=== PATIENT | female | born 1950 | race Caucasian/White ===

== ENCOUNTER 2018-07-17 17:41 | Inpatient (IN) | payer MEDICARE, OTHER ==
[~2018-07-17] VITALS: Ht 162.6 cm; Wt 84.4 kg
[2018-07-17] VITALS (7 sets, daily range): BP systolic 109–150; BP diastolic 55–85
[~2018-07-17 17:41] MED LIST: LACTULOSE 10 G/15 ML UDC (PYXIS) GT ONE
[2018-07-17] MEDS ORDERED: PROPOFOL 0 ML ONE (17:46)
--- NOTE | 2018-07-17 17:46 | NUR ---
PROPOFOL BOLUS GIVEN BY DR AGUDELO FOR RSI
--- NOTE | 2018-07-17 17:50 | NUR ---
INTUBATION COMPLETED BY DR AGUDELO, 7.5 ETT, 22 AT THE LIP. BITE BLOCK INSERTED BY RT. PLACED ON VENT, SETTINGS FOLLOWED AC 16 TV 500 FIO2 100% PEEP 5
--- NOTE | 2018-07-17 17:51 | NUR ---
PT BIB [facility] S/P WITNESSED SYNCOPE AND RESPIRATORY ARREST BY HER FAMILY. NASAL TRUMPET IN PLACE, BEING BAGGED BY EMS. PER EMS, HYPOTENSIVE PAPER GOODS MACHINE OPERATOR. SKIN WARM DIAPHORETIC. GCS 3, UNRESPONSIVE. ABD SOFT, OBESE. NO LOSS OF CONTINENCE. NO VISIBLE SIGNS OF TRAUMA. IN ER BED 08 ON MONITOR. ER ARTHUR WARREN, MULTIPLE RNS AND RTS AT BEDSIDE.
[2018-07-17] MEDS ORDERED: IV NS 0.9% 500 ML BAG IV ONE (18:00)
[2018-07-17 18:01] LABS: BASOPHILS # (AUTO) 0.6 /CMM (0.0-0.2); BASOPHILS % (AUTO) 3.5 % (0.0-2.0); EOSINOPHILS % (AUTO) 1.1 % (0.0-6.0); HEMATOCRIT 43 % (33-45); HEMOGLOBIN 14.3 g/dL (11.5-14.8); LYMPHOCYTES # (AUTO) 7.1 /CMM (0.8-4.8); LYMPHOCYTES % (AUTO) 39.2 % (20.0-44.0); MEAN CORPUSCULAR HGB CONC 33 g/dl (31.0-36.0); MEAN CORPUSCULAR VOLUME 93 fL (82-100); MONOCYTES # (AUTO) 1.3 /CMM (0.1-1.30); NEUTROPHILS # (AUTO) 8.8 /CMM (1.8-8.9); NEUTROPHILS % (AUTO) 49.2 % (43.0-81.0); PLATELET COUNT (AUTO) 379 /CMM (150-450); RDW COEFFICIENT OF VARIATION 13.4 (11.5-15.0); RED BLOOD CELL COUNT(AUTO) 4.61 MIL/uL (4.0-5.2)
[2018-07-17 18:09] LABS: CALCIUM, SERUM 8.2 mg/dL (8.5-10.1); CARBON DIOXIDE 23 mmol/L (21-32); CHLORIDE 102 mmol/L (98-107); CREATININE 1.1 mg/dL (0.6-1.3); GLUCOSE 275 mg/dL (74-106); POTASSIUM 4.7 mmol/L (3.5-5.1); SODIUM SERUM 136 mmol/L (136-145); UREA NITROGEN, BLOOD 12 mg/dL (7-18)
[2018-07-17 18:15] LABS: ALANINE AMINOTRANSFERASE 48 U/L (12-78); ALBUMIN 3.8 g/dL (3.4-5.0); ALCOHOL, BLOOD < 3 mg/dL (0-0); ALKALINE PHOSPHATASE 141 U/L (46-116); ASPARTATE AMINOTRANSFERASE 28 U/L (15-37); BILIRUBIN,DIRECT 0.1 mg/dL (0.0-0.2); BILIRUBIN,TOTAL 0.3 mg/dL (0.2-1.0); TOTAL PROTEIN, SERUM 7.8 g/dL (6.4-8.2)
[2018-07-17 18:16] LABS: ACETAMINOPHEN 0 ug/ml (10-30); SALICYLATE 1.7 mg/dL (2.8-20.0)
[2018-07-17 18:18] LABS: INR 0.86 (0.85-1.15); TROPONIN I < 0.017 ng/mL (0.00-0.056)
--- NOTE | 2018-07-17 18:30 | NUR ---
PLACED ON 2 POINT SOFT RESTRAINTS PER PROTOCOL. OK PER DR AGUDELO.
--- NOTE | 2018-07-17 18:35 | NUR ---
16FR MERCEDES CATH INSERTED, CLEAR PALE YELLOW URINE FLOWED TO GRAVITY
--- NOTE | 2018-07-17 18:37 | NUR ---
ICU 254
--- NOTE | 2018-07-17 18:39 | NUR ---
RECEIVED PT IN ER UNRESPONSIVE, PARAMEDICS BAGGING PT. MD INTUBATED PT WITH 7.5/ 22 CM AT LIP. PT TRANSFER TO CT, MANUALLY BAGGED PT. XRAY DONE AND ETT IN GOOD POSITION. TX PT BACK FROM CT AND PLACED PT ON VENT PER MD SETTINGS. AC-16, VT: 500, PEEP 5, 100%. BITE BLOCK PLACED PT BITING ON ET TUBE. RN AWARE AT BEDSIDE. AMBU BAG AT BED SIDE. VENT ALARMS SET AND FUNCTIONING WELL, VENT PLUGGED IN RED OUTLET. ABG DONE. WILL CONTINUE TO MONITOR PT.
[2018-07-17 18:40] LABS: SERUM AMMONIA 34 umol/L (11-32)
--- NOTE | 2018-07-17 18:42 | NUR ---
OGT 16FR INSERTED TO 48CM, POSITIVE PLACEMENT VERIFIED BY ASPIRATION AND AUSCULTATION. LIGHT BROWN GASTRIC CONTENTS SUCTIONED TO LOW INTERMITTENT WALL SUCTION.
[2018-07-17 18:44] LABS: THYROID STIMULATING HORMONE 5.467 uIU/mL (0.358-3.74)
--- NOTE | 2018-07-17 18:48 | NUR ---
REPORT GIVEN TO LOLI DUQUE FOR ADMISSION TO ICU
[2018-07-17 18:52] LABS: ABG BASE EXCESS -5.7 mmol/L; ABG OXYGEN SATURATION 98.7 % (92.0-98.5); ABG PCO2 42.8 mmHg (35.0-45.0); ABG PH 7.298 (7.350-7.450); AaDO2 160.2 mmHg; O2Hb 97.7 % (94.0-97.0); SITE, ABG Right Brachial
[2018-07-17] MEDS ORDERED: LEVOFLOXACIN 750 MG /D5W 150ML 150 ML IV ONE ×2 (19:00→19:23)
[2018-07-17] MEDS ORDERED: PROPOFOL 200 MG/20 ML VIAL IV ONE (19:00)
[2018-07-17] MEDS ORDERED: IV NS 0.9% 1,000 ML BAG IV ONE (19:00)
[2018-07-17] MEDS ORDERED: PROPOFOL 10MG/ML 50ML 50 ML IV PRN (19:00)
[2018-07-17] MEDS ORDERED: CEFTRIAXONE 1GM BAG (ER ONLY) 50 ML IV ONE (19:00)
--- NOTE | 2018-07-17 19:04 | NUR ---
CALLED [employer] VISUALIZATION DEVELOPER WAS PAGED.
--- NOTE | 2018-07-17 19:09 | NUR ---
PT WAKING UP, OPENING EYES, MOVING EXTREMITIES SPONTANEOUSLY. NOTIFIED MD WHO CAME TO THE BEDSIDE. INCREASED PROPOFOL DRIP TO 50MCG/KG/MIN PER MD.
--- NOTE | 2018-07-17 19:16 | NUR ---
REPORT GIVEN TO ED JEWEL INSPECTOR FOR ALLEY
--- NOTE | 2018-07-17 19:16 | NUR ---
ASSUMED CARE. REPORT RECEIVED FROM AM SHIFT DUNIA SALDIVAR. PT INTUBATED, TOLERATING CURRENT VENT SETTINGS AT THIS TIME. PT ON CARDIAC MONITORING, CONTINUOUS POX. LABS PENDING. PT ON PROPOFOL DRIP. WILL CONTINUE TO MONITOR PT CLOSELY.
[2018-07-17 19:21] LABS: APPEARANCE,URINE Clear (CLEAR); BILIRUBIN,URINE Negative (NEGATIVE); BLOOD, URINE Trace-intact Ery/uL (NEGATIVE); COLOR,URINE Yellow (YELLOW); KETONES,URINE Negative (NEGATIVE); LEUKOCYTE ESTERASE ,URINE Negative (NEGATIVE); NITRITE, URINE Negative (NEGATIVE); PROTEIN,URINE >=300 mg/dl (NEGATIVE); UGLUCOSE 250 MG/DL mg/dL (NEGATIVE); UROBILINOGEN,URINE 0.2 EU/dL (0.2)
[2018-07-17] MEDS ORDERED: CEFTRIAXONE 1 G VIAL ONE (19:22)
[2018-07-17 19:38] LABS: BACTERIA,URINE Few /HPF (None Seen); RBC,URINE 2-3/HPF /HPF (0-2)
[2018-07-17 19:39] LABS: MUCUS,URINE Few /LPF (None Seen); SQUAMOUS EPITHELIAL CELL,UR Few /HPF (None Seen); URINE AMORPHOUS URATE Few /HPF (None Seen)
--- NOTE | 2018-07-17 19:55 | NUR ---
RN NOTES REPORT RECEIVED FROM CANDY DIPPER HAND ED
--- NOTE | 2018-07-17 19:55 | NUR ---
REPORT CALLED TO [employer] WE[employer] DEVELOPERDUNIA GERARD. WILL TRANSPORT PT VIA ACLS PROTOCOL.
[2018-07-17] MEDS ORDERED: PROPOFOL 100 ML IV PRN (20:00)
[2018-07-17] MEDS ORDERED: DEXTROSE 50%-WATER 50 ML DISP.SYRIN IV PRN (20:00)
[2018-07-17] MEDS ORDERED: ONDANSETRON HCL/PF 4 MG/2 ML VIAL IVP PRN ×2 (20:00)
[2018-07-17] MEDS ORDERED: NOREPINEPHRINE 8 MG in IV D5W 500 ML IV PRN (20:00)
[2018-07-17] MEDS ORDERED: MORPHINE SULFATE INJ 4 MG/ML DISP.SYRIN IV PRN (20:30)
[2018-07-17] MEDS ORDERED: PROPOFOL 100 ML ONE (20:32)
--- NOTE | 2018-07-17 20:36 | NUR ---
PT TRANSPORTED TO RADIOLOGY FOR CT.
[2018-07-17] MEDS ORDERED: IOHEXOL-300 100 ML VIAL IV ONE (20:38)
[2018-07-17] MEDS ORDERED: CT SWABBABLE VALVE TRANS SET 1 EA INFUS.SET MC ONE (20:38)
[2018-07-17] MEDS ORDERED: IV NS 0.9% 250 ML IV ONE (20:38)
--- NOTE | 2018-07-17 20:57 | NUR ---
PT TRANSPORTED TO ICU VIA ACLS PROTOCOL.
[2018-07-17] MEDS ORDERED: LEVOFLOXACIN 750 MG /D5W 150ML 150 ML IV SCH (21:00)
--- NOTE | 2018-07-17 21:00 | NUR ---
RN NOTES PATIENT ARRIVED FROM ER VIA GURNEY. SEDATED WITH DIPRIVAN @ 100MCG/KG/MIN. PT IS INTUBATED AND ON VENT WITH SETTINGS AC 16, TV 500, FIO2 100%, PEEP 5, ETT 7.5/22@LIP, SATURATING WELL, NO S/S OF RESP DISTRESS. PT IS SINUS TACH ON THE MONITOR, HR 100'S. OG TUBE IS CLAMPED AND IN PLACE. MERCEDES CATH IS IN PLACE. RIGHT AC 18G AND LEFT FOREARM 18G FLUSHED AND PATENT, NO S/S OF INFILTRATION/INFECTION, DRESSINGS CDI. BED LOW AND LOCKED, SIDERAILS UP, RESTRAINTS IN PLACE FOR SAFETY. WILL MONITOR
[2018-07-17] MEDS: ENOXAPARIN SODIUM 40 MG/0.4 ML DISP.SYRIN SQ SCH (21:06)
[2018-07-17] MEDS: BLOOD SUGAR DIAGNOSTIC 1 EACH STRIP IN SCH (21:07)
[2018-07-17] MEDS: PROPOFOL 100 ML IV PRN ×2 (21:28→22:44)
[2018-07-17] MEDS ORDERED: IV NS 0.9% 1,000 ML IV ONE (21:30)
--- NOTE | 2018-07-17 21:30 | NUR ---
RN NOTES ECHO DONE. EF IS 60%
[2018-07-17] MEDS: INSULIN REGULAR, HUMAN 100 UNIT/ML 3 ML VIAL SQ PRN (21:32)
[2018-07-17] MEDS: IV NS 0.9% 1,000 ML IV PRN (21:50)
--- NOTE | 2018-07-17 22:00 | NUR ---
RN NOTES RADIOLOGY CALL TO NOTIFY US THAT CT CHEST, ABDOMEN, AND PELVIS WITH CONTRAST WILL BE DONE TOMORROW AM BECAUSE CT WILL BE SHUT DOWN FOR THE NIGHT. CONSENT OBTAINED FROM FAMILY
[2018-07-17] MEDS: LACTULOSE 10 G/15 ML UDC (PYXIS) NG SCH (22:43)
[2018-07-17] MEDS ORDERED: IV NS 0.9% 1,000 ML IV STA (23:35)
--- NOTE | 2018-07-17 23:43 | NUR ---
RN NOTES GRIFFIN DE LA ROSA BIKE TECHNICIAN AT PATIENT BEDSIDE TO ASSESS THE PATIENT. ORDERS RECEIVED.
[2018-07-18] VITALS (38 sets, daily range): BP systolic 100–157; BP diastolic 26–80
[2018-07-18] MEDS: PROPOFOL 100 ML IV PRN ×9 (01:24→21:53)
[2018-07-18 05:18] LABS: EOSINOPHILS % (AUTO) 0.6 % (0.0-6.0); HEMATOCRIT 37 % (33-45); HEMOGLOBIN 11.9 g/dL (11.5-14.8); LYMPHOCYTES # (AUTO) 1.5 /CMM (0.8-4.8); LYMPHOCYTES % (AUTO) 16.4 % (20.0-44.0); MEAN CORPUSCULAR HGB CONC 32 g/dl (31.0-36.0); MEAN CORPUSCULAR VOLUME 94 fL (82-100); MONOCYTES # (AUTO) 0.2 /CMM (0.1-1.30); MONOCYTES % (AUTO) 1.8 % (2.0-12.0); NEUTROPHILS # (AUTO) 7.6 /CMM (1.8-8.9); NEUTROPHILS % (AUTO) 81.2 % (43.0-81.0); PLATELET COUNT (AUTO) 204 /CMM (150-450); RDW COEFFICIENT OF VARIATION 13.8 (11.5-15.0); RED BLOOD CELL COUNT(AUTO) 3.95 MIL/uL (4.0-5.2); WHITE BLOOD COUNT (AUTO) 9.4 K/uL (4.3-11.0)
[2018-07-18 05:29] LABS: CALCIUM, SERUM 7.5 mg/dL (8.5-10.1); CREATININE 0.8 mg/dL (0.6-1.3); MAGNESIUM 1.5 mg/dL (1.8-2.4); PHOSPHORUS 2.4 mg/dL (2.5-4.9); POTASSIUM 4.4 mmol/L (3.5-5.1)
[2018-07-18] MEDS: LACTULOSE 10 G/15 ML UDC (PYXIS) NG SCH (05:36)
--- NOTE | 2018-07-18 06:10 | NUR ---
RN NOTES NOTIFIED GRIFFIN DE LA ROSA NP OF PATIENT LACTIC 2.9 EVEN AFTER RECEIVING 2L TOTAL NS BOLUS IN ICU AND 2L TOTAL NS BOLUS IN ER. PER GRIFFIN CONWAY, GIVE ANOTHER 1L NS BOLUS AND INCREASE NS MIVF TO 150MLS/HR
[2018-07-18] MEDS: IV NS 0.9% 1,000 ML IV PRN ×2 (06:24→14:29)
[2018-07-18] MEDS ORDERED: IV NS 0.9% 1,000 ML IV ONE (06:30)
--- NOTE | 2018-07-18 06:30 | NUR ---
RN CLOSING NOTES PT REMAINS STABLE OF THE MOMENT. ALL DUE MEDS GIVEN, AM CARE PROVIDED. WILL ENDORSE ALLEY TO AM RN
--- NOTE | 2018-07-18 07:05 | NUR ---
RN INITIAL NOTES RECEIVED PT INTUBATED, ON VENT. NO RESPIRATORY DISTRESS NOTED. NO SOB NOTED. NO SIGNS OF PAIN NOTED. PT SEDATED. ON DIPRIVAN AT 60MCG/KG/MIN. IV LINES IN PLACE. NS AT 150ML/HR INFUSING. FC IN PLACE. NO HEMATURIA NOTED. BLE ELEVATED. FOR CT CHEST, ABDOMEN AND PELVIS. WILL CLOSELY MONITOR
[2018-07-18] MEDS: PANTOPRAZOLE 40 MG VIAL IV SCH (08:14)
[2018-07-18] MEDS: BLOOD SUGAR DIAGNOSTIC 1 EACH STRIP IN SCH ×4 (08:14→21:06)
[2018-07-18] MEDS ORDERED: PANTOPRAZOLE 40 MG VIAL IV SCH (09:00)
--- NOTE | 2018-07-18 09:15 | NUR ---
WOUND CARE CONSULT: PT PRESENTS WITH INCONTINENCE OF STOOL. PT IS INTUBATED AT THIS TIME. SKIN IS INTACT. PT GETS AGITATED AT TIMES PER NURSING STAFF. RECOMMENDATIONS MADE FOR SKIN PROTECTION AND DISCUSSED WITH NURSING STAFF. CURRENT JORGE ALBERTO SCORE IS 14. WILL SEE PRN. IN AGREEMENT WITH PLAN OF CARE.
--- NOTE | 2018-07-18 09:30 | NUR ---
RN NOTES 09 SEEN AND EXAMINED BY DR ANDREW DAO. MD REVIEWED H&P, CURRENT MEDS AND LATEST LAB VALUES AND IMAGING RESULT. WILL CONTINUE TO MONITOR. ALSO SEEN AND EXAMINED BY DR. PEREZ. WILL CONTINUE TO MONITOR 914 SEEN AND EXAMINED BY DR LEE. AWARE OF PT'S CURRENT STATUS, H&P AND CURRENT LAB VALUES AND IMAGING STUDIES. PT ON DIPRIVAN, DOING SEDATION VACATION. NO SEIZURE ACTIVITY NOTED. WILL CONTINUE TO MONITOR.
[2018-07-18] MEDS: Magnesium 1GM/D5W 100ML PREMIX 100 ML IV SCH ×2 (10:19→11:22)
[2018-07-18 10:31] LABS: ABG BASE EXCESS -4.7 mmol/L; ABG OXYGEN SATURATION 97.2 % (92.0-98.5); ABG PCO2 33.6 mmHg (35.0-45.0); ABG PH 7.384 (7.350-7.450); ABG PO2 103.7 mmHg (75.0-100.0); AaDO2 142.9 mmHg; COHb 0.3 % (0.5-1.5); MetHb 0.5 % (0.0-1.5); O2Hb 96.4 % (94.0-97.0); PEEP,BG 5 cm H2O; SITE, ABG Right Radial; VENT MODE, BG AC 20 500 40% +5; VT, ABG 500 mL
--- NOTE | 2018-07-18 10:39 | NUR ---
SW consult requested by ZORAIDA De Oliveira for possible homelessness. SW is unable to assess pt. at this time since pt. is intubated. SW to assess once pt. is extubated, alert and oriented.
--- NOTE | 2018-07-18 11:09 | NUR ---
RT NOTE RECEIVED PT MECHANICALLY VENTILATED VIA 7.5 ETT 22 CM AT LIP. CUFF INFLATED. ETT SECURE. VENTILATOR SETTINGS PRESCRIBED. BILATERAL CHEST RISE NOTED. ALARMS SET PER PROTOCOL AND AUDIBLE. VENT PLUGGED IN TO RED OUTLET. AMBU BAG AT BED SIDE. NO DISTRESS NOTED AT MOMENT. Addendum: 07/18/18 at 1112 by KERA MOON RT Amended: Links added.
[2018-07-18] MEDS ORDERED: CT SWABBABLE VALVE TRANS SET 1 EA INFUS.SET MC ONE (11:54)
[2018-07-18] MEDS ORDERED: IOHEXOL-350 100 ML VIAL IV ONE (11:54)
[2018-07-18] MEDS ORDERED: IV NS 0.9% 250 ML IV ONE (11:54)
[2018-07-18] MEDS ORDERED: NOREPINEPHRINE 8 MG in IV D5W 500 ML IV PRN (13:30)
[2018-07-18] MEDS ORDERED: Sodium Phosphate 7.5 MMOL in IV D5W 100 ML IV ONE (14:00)
[2018-07-18] MEDS: Z GUARD REMEDY 2 OZ OINT TP SCH (16:51)
--- NOTE | 2018-07-18 18:46 | NUR ---
RN CLOSING NOTES NO SIGNIFICANT CHANGE NOTED. PT STILL ON DIPRIVAN. IVF INFUSING. KEPT CLEAN AND DRY. REPOSITIONED Q2. KEPT COMFORTABLE. WILL ENDORSE FOR CONTINUITY OF CARE.
--- NOTE | 2018-07-18 19:00 | NUR ---
RN INITIAL NOTES RECEIVED THE PATIENT SEDATED ON BED WITH DIPRIVAN @ 60MCG/KG/MIN. INTUBATED AND ON VENT WITH SETTINGS AC16, TV 500, FIO2 40%, PEEP5 , ETT 7.5/22@LIP, SATURATING WELL, NO S/S OF RESP DISTRESS. SR ON THE MONITOR, HR 80-90'S. OGT IS CLAMPED. MERCEDES CATH INTACT. LEFT FOREARM 18G AND RIGHT AC 18G WITH NS @ 100MLS/HR, NO S/S OF INFILTRATION/INFECTION, DRESSINGS CDI. BED LOW AND LOCKED, SIDERAILS UP, BILATERAL SOFT WRIST RESTRAINTS ON FOR SAFETY. WILL MONITOR
--- NOTE | 2018-07-18 19:17 | NUR ---
PT RECEIVED ORALLY INTUBATED WITH A 7.5 ETT SECURED AT 22CM AT THE LIP LINE, PT IS ON THE VENT WITH NOTED SETTINGS. PT IS SEDATED AT THIS TIME. VENT ALARMS ARE SET AND AUDIBLE WITH AMBU BAG @ BEDSIDE. SAFE DEPOSIT CLERK CUFF PRESSURE NOTED. VENT IS PLUGGED INTO RED OUTLET. BILATERAL BS NOTED. SX'D MODERATE AMOUNT OF YELLOW/CHÁVEZ THICK SECRETIONS. NO RESPIRATORY DISTRESS NOTED AT THIS TIME, WILL CONTINUE TO MONITOR.
[2018-07-18] MEDS: CEFTRIAXONE 1 G in IV D5W 50 ML IV SCH (19:55)
[2018-07-18] MEDS ORDERED: LEVOFLOXACIN 750 MG /D5W 150ML 150 ML IV SCH (20:00)
[2018-07-18] MEDS: ENOXAPARIN SODIUM 40 MG/0.4 ML DISP.SYRIN SQ SCH (20:10)
[2018-07-18] MEDS: ACETAMINOPHEN 650 MG/20.3 ML UDC NG PRN (21:06)
[2018-07-18] MEDS: LEVOFLOXACIN 750 MG /D5W 150ML 150 ML IV SCH (21:06)
[2018-07-18] MEDS: INSULIN REGULAR, HUMAN 100 UNIT/ML 3 ML VIAL SQ PRN (21:06)
[2018-07-19] VITALS (43 sets, daily range): BP systolic 89–196; BP diastolic 41–95
[2018-07-19] MEDS: IV NS 0.9% 1,000 ML IV PRN ×3 (01:11→20:08)
[2018-07-19] MEDS: PROPOFOL 100 ML IV PRN ×9 (01:13→23:46)
[2018-07-19 05:05] LABS: CALCIUM, SERUM 7.1 mg/dL (8.5-10.1); CREATININE 0.9 mg/dL (0.6-1.3); POTASSIUM 3.6 mmol/L (3.5-5.1)
--- NOTE | 2018-07-19 06:10 | NUR ---
RN CLOSING NOTES PT REMAINS STABLE OF THE MOMENT. ALL DUE MEDS GIVEN, AM CARE PROVIDED. WILL ENDORSE ALLEY TO AM RN
--- NOTE | 2018-07-19 07:05 | NUR ---
RN INITIAL NOTES RECEIVED PT INTUBATED, ON VENT. NO RESPIRATORY DISTRESS NOTED. NO SOB NOTED. NO SIGNS OF PAIN NOTED. PT SEDATED. ON DIPRIVAN AT 60MCG/KG/MIN. IV LINES IN PLACE. NS AT 100ML/HR INFUSING. FC IN PLACE. NO HEMATURIA NOTED. BLE ELEVATED. FOR WEANING TRIALS TODAY. WILL CLOSELY MONITOR
--- NOTE | 2018-07-19 08:00 | NUR ---
RN NOTES RECEIVED A CALL FROM DR DIAZ (RADIOLOGIST) REGARDING CXR RESULT. SUGGESTED TO ADVANCE NGT TUBE TO ENSURE POSITIONING. NGT ADVANCED. PLACEMENT VERIFIED BY SAJAN RN.
[2018-07-19] MEDS: Z GUARD REMEDY 2 OZ OINT TP SCH (08:14)
[2018-07-19] MEDS: BLOOD SUGAR DIAGNOSTIC 1 EACH STRIP IN SCH ×4 (08:14→22:13)
[2018-07-19] MEDS: PANTOPRAZOLE 40 MG VIAL IV SCH (08:14)
[2018-07-19 10:09] LABS: ABG BASE EXCESS -8.6 mmol/L; ABG OXYGEN SATURATION 97.7 % (92.0-98.5); ABG PCO2 40.7 mmHg (35.0-45.0); ABG PH 7.262 (7.350-7.450); ABG PO2 132.4 mmHg (75.0-100.0); COHb 0.3 % (0.5-1.5); MetHb 0.5 % (0.0-1.5); O2Hb 96.9 % (94.0-97.0); SITE, ABG Right Radial; VENT MODE, BG SIMV 4 PS12 +5 40%
--- NOTE | 2018-07-19 10:15 | NUR ---
RN NOTES 0900 PT ON DIPRIVAN AT 20MCG/KG/MIN. PT AWAKE, ABLE TO FOLLOW SIMPLE COMMANDS. DR BRANDT AT BEDSIDE. AWARE OF CURRENT LAB VALUES AND CXR RESULT. STARTED WEANING TRIALS ORDERED. WILL MONITOR. 1000 PT ON SIMV MODE. PT NOTED TACHYCARDIC, 120S AND SBP 190S. PT AGITATED. TRYING TO PULL OUT ETT. ABG DONE. AWAITING FOR RESULT. WILL CLOSELY MONITOR 1015 DR MARRUFO IN THE UNITR, ABG RESULT RELAYED. ORDERED TO PUT PT BACK ON AC MODE. WILL START TITRATING DIPRIVAN. WILL CONTINUE TO MONITOR.
--- NOTE | 2018-07-19 12:00 | NUR ---
RN NOTES SEEN AND EXAMINED BY DR ANDREW DAO. MD AWARE OF CURRENT LAB VALUES AND CXR RESULT. PT FAILED WEANING TRAIL. DIPRIVAN TITRATED ACCORDINGLY. WILL CONTINUE TO MONITOR.
--- NOTE | 2018-07-19 18:48 | NUR ---
RN CLOSING NOTES NO SIGNIFICANT CHANGE NOTED. NO RESPIRATORY DISTRESS NOTED. PT STILL ON DIPRIVAN. IVF INFUSING. KEPT CLEAN AND DRY. REPOSITIONED Q2. KEPT COMFORTABLE. WILL ENDORSE FOR CONTINUITY OF CARE.
--- NOTE | 2018-07-19 19:45 | NUR ---
ICU/INDUSTRIAL MECHANIC RECEIVED REPORT FROM DAY NURSE, PT IS ORALLY INTUBATED WITH SEDATION AT 60MCG. PT IS TOLERATING THIS WELL, WITH SATURATION AT 98-100%, PT DOES HAS THICK SECRETIONS. PT IS NSR ON MONITOR. MERCEDES CATH DRAINING DARK YELLOW URINE. NO SKIN ISSUES TO ADDRESS AT THIS TIME. PT WAS TURNED AND REPOSITIONED FOR COMFORT AND CARE. WILL CONTINUE TO MONITOR THIS PT.
[2018-07-19] MEDS: CEFTRIAXONE 1 G in IV D5W 50 ML IV SCH (19:54)
--- NOTE | 2018-07-19 20:20 | NUR ---
ICU/GAS STATION SERVICE ATTENDANT FAMILY AT BEDSIDE, GREAT FAMILY SUPPORT FOR THE PT. ASKED QUESTIONS ABOUT PT'S HEALTH AND ABOUT POSSIBLE EXTUBATION. ALL QUESTIONS WERE ANSWERED, FAMILY SAID THEY WILL BE BACK IN AM WHEN PT HAS SEDATION VACATION.
[2018-07-19] MEDS: LEVOFLOXACIN 750 MG /D5W 150ML 150 ML IV SCH (21:33)
[2018-07-19] MEDS: ENOXAPARIN SODIUM 40 MG/0.4 ML DISP.SYRIN SQ SCH (21:35)
[2018-07-19] MEDS: INSULIN REGULAR, HUMAN 100 UNIT/ML 3 ML VIAL SQ PRN (22:15)
--- NOTE | 2018-07-19 22:30 | NUR ---
ICU/DATA ENTRY MACHINE OPERATOR PT'S BLOOD SUGAR IS 216, THIS WAS COVERED WITH INSULIN 4 UNITS.WILL RECHECK BLOOD SUGAR PER MD ORDERERS AND HOSPITAL PROTOCOL. PT APPEARS TO BE COMFORTABLE NO ACUTE DISTRESS SEEN.
[2018-07-20] VITALS (46 sets, daily range): BP systolic 102–202; BP diastolic 49–108
[2018-07-20] MEDS: PROPOFOL 100 ML IV PRN ×6 (02:08→21:52)
--- NOTE | 2018-07-20 02:10 | NUR ---
ICU/GAGE MAKER PT GIVEN AM CARE ALONG WITH ORAL CARE. PT TOLERATED THIS WELL, REMAINS ON CURRENT VENT SETTINGS WITH SATURATION AT 98-100%. ALSO PT CURRENTLY ON 60MCG OF DEPROVAN. PT WAS TURNED AND REPOSITIONED FOR COMFORT AND CARE. WILL CONTINUE TO MONITOR THIS PT.
--- NOTE | 2018-07-20 04:05 | NUR ---
ICU/LEARNING STRATEGIST AM LABS WERE DRAWN WELL PORTABLE CHEST XRAY. AWAIT ANY ABNORMAL LABS.
[2018-07-20 04:34] LABS: BASOPHILS # (AUTO) 0.1 /CMM (0.0-0.2); BASOPHILS % (AUTO) 1.6 % (0.0-2.0); EOSINOPHILS % (AUTO) 1.9 % (0.0-6.0); HEMATOCRIT 31 % (33-45); HEMOGLOBIN 10.1 g/dL (11.5-14.8); LYMPHOCYTES # (AUTO) 1.4 /CMM (0.8-4.8); LYMPHOCYTES % (AUTO) 18.2 % (20.0-44.0); MEAN CORPUSCULAR HGB CONC 33 g/dl (31.0-36.0); MEAN CORPUSCULAR VOLUME 94 fL (82-100); MONOCYTES # (AUTO) 0.6 /CMM (0.1-1.30); MONOCYTES % (AUTO) 7.4 % (2.0-12.0); NEUTROPHILS # (AUTO) 5.4 /CMM (1.8-8.9); NEUTROPHILS % (AUTO) 70.9 % (43.0-81.0); PLATELET COUNT (AUTO) 166 /CMM (150-450); RDW COEFFICIENT OF VARIATION 14.5 (11.5-15.0); RED BLOOD CELL COUNT(AUTO) 3.27 MIL/uL (4.0-5.2); WHITE BLOOD COUNT (AUTO) 7.6 K/uL (4.3-11.0)
[2018-07-20 04:46] LABS: CALCIUM, SERUM 7.3 mg/dL (8.5-10.1); CREATININE 0.8 mg/dL (0.6-1.3); MAGNESIUM 1.7 mg/dL (1.8-2.4); PHOSPHORUS 2.6 mg/dL (2.5-4.9); POTASSIUM 3.5 mmol/L (3.5-5.1)
[2018-07-20] MEDS: BLOOD SUGAR DIAGNOSTIC 1 EACH STRIP IN SCH ×3 (06:34→23:18)
[2018-07-20] MEDS: IV NS 0.9% 1,000 ML IV PRN ×2 (06:34→16:33)
[2018-07-20] MEDS: INSULIN REGULAR, HUMAN 100 UNIT/ML 3 ML VIAL SQ PRN ×3 (06:36→23:19)
--- NOTE | 2018-07-20 07:10 | NUR ---
RN INITIAL NOTES: Rec'd pt on bed, sedated, not in any distress. On MV via ETT, sating at 100%. On telemonitor, SR 86bpm. Has OGT clamped at this time, patent & intact. Has 2 IV line access: LFA G18, SL & R AC G18, PL w/ NS x 100 cc/hr & Diprivan Drip x 60 mcg infusing well, both lines no s/sx of infection/infiltration. Has FC draining to BSB. Provided comfort & safety measures. Bed kept low & in locked pos. Call light placed w/in reach. Will cont to monitor & attend pt needs.
--- NOTE | 2018-07-20 07:30 | NUR ---
RT PATIENT REC'D ORALLY INTUBATED ON [facility] WITH ORDERED SETTINGS EMILY WELL. VENT ALARMS CHECKED + AUDIBLE. CUFF PRESSURE CHECKED PASSENGER RELATIONS REPRESENTATIVE. AIRWAY PATENT AND SUCTIONED WITH SMALL AMT PALE SEMITHICK SECRETIONS.AMBU BAG AT [facility]. Addendum: 07/20/18 at 1613 by ADDISON ALARCON RT Amended: Links added.
--- NOTE | 2018-07-20 07:30 | NUR ---
Pt started on Sedation Vacation. Family Maral called & said that they're coming to see pt during sedation vacation.
--- NOTE | 2018-07-20 08:25 | NUR ---
Pt off sedation. Family at bedside & talking to the pt. Per family, pt cannot understand [place] but is A/O x 3. 0920H Pt BP noted to be high, maintains at SBP >170 to 200's and minimally agitated. Restarted on Diprivan Drip. Explained to the family w/ verbalization of understanding.
[2018-07-20] MEDS: PANTOPRAZOLE 40 MG VIAL IV SCH (09:05)
[2018-07-20] MEDS: Z GUARD REMEDY 2 OZ OINT TP SCH (09:06)
--- NOTE | 2018-07-20 10:15 | NUR ---
Pt seen & examined by Dr. Wheat & updated about pt condition. 1020H Per MD, will try to wean today. RT made aware. Started on weaning process, off sedation. Pt monitored closely. 1030H Pt noted to be mildly agitated, HR at >100's, RR 26, BP 180/88. RT placed her back from previous MV settings. Dr. Stringer made aware. Restarted pt on Diprivan Drip.
[2018-07-20] MEDS: Magnesium 1GM/D5W 100ML PREMIX 100 ML IV SCH ×2 (10:17→11:21)
--- NOTE | 2018-07-20 11:35 | NUR ---
Per Dr. Stringer to DC PEEP on MV settings d/t presence of perihilar on CXR. Addendum: 07/20/18 at 1819 by PHANI NOVAK RN Correction: error on perihilar - because of pneumomediastinum.
--- NOTE | 2018-07-20 11:40 | NUR ---
Pt seen & examined by Dr. Glover & updated about pt condition. Dr. Glover was able to talk to Dr. Stringer. Per , start pt on Metoprolol 25mg via GT q6H.
[2018-07-20] MEDS ORDERED: DEXTROSE 50%-WATER 50 ML DISP.SYRIN IV PRN (12:30)
[2018-07-20] MEDS: METOPROLOL TARTRATE 25 MG TABLET GT SCH ×3 (12:32→23:12)
[2018-07-20] MEDS ORDERED: ATOR40TA PO (14:37)
[2018-07-20] MEDS ORDERED: ASPI-1152 PO (14:37)
[2018-07-20] MEDS ORDERED: PARO10TA86 PO (14:37)
[2018-07-20] MEDS ORDERED: MONT10TA22 PO (14:37)
[2018-07-20] MEDS ORDERED: THEO300C4 PO (14:37)
[2018-07-20] MEDS ORDERED: GABA-534 PO (14:37)
[2018-07-20] MEDS ORDERED: LOSA25TA13 PO (14:37)
[2018-07-20] MEDS ORDERED: MECL12.582 PO (14:37)
[2018-07-20] MEDS ORDERED: AMLO5TAB4 PO (14:37)
[2018-07-20] MEDS ORDERED: BENZ-13 PO (14:37)
[2018-07-20] MEDS ORDERED: PRED20TA PO (14:37)
[2018-07-20] MEDS ORDERED: MEMA10TA PO (14:37)
[2018-07-20] MEDS ORDERED: ERGO500014 PO (14:37)
[2018-07-20] MEDS ORDERED: PROP20TA19 PO (14:37)
[2018-07-20] MEDS ORDERED: LOSA-22 PO (14:37)
[2018-07-20] MEDS: ACETAMINOPHEN 650 MG/20.3 ML UDC NG PRN (17:10)
--- NOTE | 2018-07-20 18:20 | NUR ---
RN CLOSING NOTES: Pt not in any distress while on Diprivan Drip x 50 mcg. On MV via ETT, failed weaning trials this PM. On telemonitor, still SR. OGT clamped at this time except for meds, kept patent & intact. 2 IV line access kept C/D/I: LFA G18, SL & R AC G18, PL w/ NS x 100 cc/hr & Diprivan Drip x 50 mcg infusing well, both lines no s/sx of infection/infiltration. FC draining to BSB. Kept well rested. Needs attended. Bed kept low & in locked pos. Call light placed w/in reach. Will endorse to PM RN for ALLEY.
--- NOTE | 2018-07-20 19:35 | NUR ---
RN NOTES RECEIVED PT WITH ETT 7.5, 25 CM AT LIP. CONNECTED TO VENT SETTING AC 16, TV 500 FIO2 40% NO PEEP. NO ACUTE RESPIRATORY DISTRESS. BILATERAL BREATH SOUND RHONCHI. SX'D WITH SMALL WHITISH THIN SECRETION, SEDATED WITH DIPRIVAN. TELE MONITOR REVEALS SR HR 67. OGT INTACT PATENCY CHECKED. IV SITE ON LFA G 18 SL AND RAC G 18 RUNNING WITH NS @ 100 ML/HR AND DIPRIVAN @ 50 MCG/KG/MIN TOLERATED WELL. INTACT AND PATENT. F/C DRAINED W/ YELLOW COLOR URINE. WITH STRONG PERIPHERAL PULSES BOTH SOFT WRIST RESTRAINT KEPT IN PLACED CIRCULATION CHECKED. NO DISCOLORATION PRESENT. KEPT PT CLEAN AND COMFORTABLE IN BED. WILL CONTINUE TO MONITOR.
[2018-07-20] MEDS: CEFTRIAXONE 1 G in IV D5W 50 ML IV SCH (20:11)
[2018-07-20] MEDS: ENOXAPARIN SODIUM 40 MG/0.4 ML DISP.SYRIN SQ SCH (21:04)
[2018-07-20] MEDS: LEVOFLOXACIN 750 MG /D5W 150ML 150 ML IV SCH (21:04)
[2018-07-21] VITALS (35 sets, daily range): BP systolic 107–162; BP diastolic 54–75
[2018-07-21] MEDS: PROPOFOL 100 ML IV PRN ×6 (01:27→23:54)
[2018-07-21 04:09] LABS: BASOPHILS # (AUTO) 0.1 /CMM (0.0-0.2); BASOPHILS % (AUTO) 0.9 % (0.0-2.0); EOSINOPHILS % (AUTO) 2.9 % (0.0-6.0); HEMATOCRIT 30 % (33-45); HEMOGLOBIN 9.8 g/dL (11.5-14.8); LYMPHOCYTES # (AUTO) 1.3 /CMM (0.8-4.8); LYMPHOCYTES % (AUTO) 21.2 % (20.0-44.0); MEAN CORPUSCULAR HGB CONC 33 g/dl (31.0-36.0); MEAN CORPUSCULAR VOLUME 92 fL (82-100); MONOCYTES # (AUTO) 0.4 /CMM (0.1-1.30); NEUTROPHILS # (AUTO) 4.2 /CMM (1.8-8.9); PLATELET COUNT (AUTO) 184 /CMM (150-450); RDW COEFFICIENT OF VARIATION 13.6 (11.5-15.0); RED BLOOD CELL COUNT(AUTO) 3.26 MIL/uL (4.0-5.2); WHITE BLOOD COUNT (AUTO) 6.2 K/uL (4.3-11.0)
[2018-07-21] MEDS: IV NS 0.9% 1,000 ML IV PRN (04:11)
[2018-07-21 04:31] LABS: CALCIUM, SERUM 7.7 mg/dL (8.5-10.1); CREATININE 0.7 mg/dL (0.6-1.3); MAGNESIUM 1.8 mg/dL (1.8-2.4); PHOSPHORUS 2.7 mg/dL (2.5-4.9); POTASSIUM 3.2 mmol/L (3.5-5.1)
[2018-07-21] MEDS: METOPROLOL TARTRATE 25 MG TABLET GT SCH ×4 (05:57→23:46)
[2018-07-21] MEDS: BLOOD SUGAR DIAGNOSTIC 1 EACH STRIP IN SCH ×4 (06:06→23:47)
--- NOTE | 2018-07-21 06:58 | NUR ---
RN NOTES NO SIGNIFICANT CHANGES PRESENT THROUGHOUT THE SHIFT. PT OPENS EYES AND REACTED TO PAIN. CONTINUE WITH ETT AND MECHANICAL VENT, WITH DIPRIVAN FOR SEDATION. NO ACUTE RESP DISTRESS, IV SITE REMAINED INTACT AND PATENT. OGT INTACT NPO EXCEPT MEDS. ALL IN ATB AND MEDICINE REMAINED EFFECTIVE. KEPT PT CLEAN AND DRY. WILL ENDORSED CONTINUITY OF CARE TO AM NURSE.
--- NOTE | 2018-07-21 07:10 | NUR ---
received patient ett 7.03/25 tolerating vent settings. patient on diprivan 40mcg awake to light touch and calm and cooperative. mcallister cath in place draining to gravity. iv site c/d/i/p with ivf running per order. patient bue edematous paused ivf and message to md for dc. restraints on bilateral wrists as she is actively trying to pull at ett. patient appears stable. aspiration, skin, and safety precautions in place will monitor
--- NOTE | 2018-07-21 08:10 | NUR ---
DR DAO AT BEDSIDE. NOTIFIED PATIENT MED RECON PENDING. PENDING WEANING TRIAL AGAIN TODAY. PER DC IVF PATIENT HAS EDEMA AND UO STABLE. TKO NS ORDERED.
[2018-07-21] MEDS: Z GUARD REMEDY 2 OZ OINT TP SCH (08:15)
[2018-07-21] MEDS: PANTOPRAZOLE 40 MG VIAL IV SCH (08:15)
--- NOTE | 2018-07-21 08:23 | NUR ---
RT PATIENT REC'D ORALLY INTUBATED ON [facility] VENT WITH ORDERED SETTINGS EMILY WELL. VENT ALARMS CHECKED + AUDIBLE. CUFF PRESSURE CHECKED PRODUCE WEIGHER. AIRWAY PATENT AND SUCTIONED WITH SMALL AMT PALE SEMITHICK SECRETIONS. AMBU BAG AT HOB. Addendum: 07/21/18 at 1010 by ADDISON ALARCON RT Amended: Links added.
[2018-07-21] MEDS ORDERED: IV NS 0.9% 250 ML IV PRN (09:00)
--- NOTE | 2018-07-21 10:33 | NUR ---
PER DR PEREZ DAILY ABG CANCELLED, NO VENTILATOR CHANGES WILL OCCUR.
[2018-07-21] MEDS ORDERED: POTASSIUM CHLORIDE 20 MEQ POWDER PACKET NG SCH ×2 (10:45→12:00)
[2018-07-21] MEDS ORDERED: BENZONATATE 100 MG CAPSULE PO PRN (11:00)
[2018-07-21] MEDS: Z GUARD REMEDY 2 OZ OINT TP PRN (16:21)
--- NOTE | 2018-07-21 18:40 | NUR ---
patient vss. tolerating vent. diprivan running and patient calm and cooperative on 50mcg/kg/min as well at 40mcg/kg/min and tolerating decrease of diprivan without any s/s distress or anxiety. iv sites c/d/i/p. mcallister cath to gravity. skin, safety, and aspiration precautions in place. will endorse care to rn for jossy.
--- NOTE | 2018-07-21 19:30 | NUR ---
RN NOTES PT IS AWAKE EYES OPEN TRYING TO GET UP, RAISING HANDS, VENT ALARMED KEPT ON. DIPRIVAN INCREASE TO 45 MCG/KG/MIN. NO ACUTE RESP DISTRESS. WITH ETT CONNECTED TO VENT, SETTING TOLERATED WELL. BILATERAL BREATH SOUND DIMINISHED. OGT INTACT AND PATENT GURGLING SOUND HEARD. NO RESIDUAL. RECEIVED WITH DIPRIVAN @ 40 MCG/KG/MIN ON RAC AND LFA G 18 SL INTACT AND PATENT. F/C DRAINED VIA GRAVITY. KEPT PT CLEAN AND DRY. WILL CLOSELY MONITOR.
[2018-07-21] MEDS: CEFTRIAXONE 1 G in IV D5W 50 ML IV SCH (19:53)
[2018-07-21] MEDS: LEVOFLOXACIN 750 MG /D5W 150ML 150 ML IV SCH (21:07)
[2018-07-21] MEDS: GABAPENTIN 300 MG CAPSULE PO SCH (21:07)
[2018-07-21] MEDS: ENOXAPARIN SODIUM 40 MG/0.4 ML DISP.SYRIN SQ SCH (21:11)
[2018-07-21] MEDS: INSULIN REGULAR, HUMAN 100 UNIT/ML 3 ML VIAL SQ PRN (23:48)
[2018-07-22] VITALS (50 sets, daily range): BP systolic 75–157; BP diastolic 37–74
[2018-07-22] MEDS: PROPOFOL 100 ML IV PRN ×5 (04:30→23:07)
[2018-07-22 04:50] LABS: BASOPHILS % (AUTO) 0.1 % (0.0-2.0); EOSINOPHILS % (AUTO) 1.8 % (0.0-6.0); HEMATOCRIT 29 % (33-45); HEMOGLOBIN 9.6 g/dL (11.5-14.8); LYMPHOCYTES # (AUTO) 0.9 /CMM (0.8-4.8); LYMPHOCYTES % (AUTO) 11.3 % (20.0-44.0); MEAN CORPUSCULAR HGB CONC 33 g/dl (31.0-36.0); MEAN CORPUSCULAR VOLUME 92 fL (82-100); MONOCYTES # (AUTO) 0.7 /CMM (0.1-1.30); MONOCYTES % (AUTO) 8.5 % (2.0-12.0); NEUTROPHILS # (AUTO) 6.4 /CMM (1.8-8.9); NEUTROPHILS % (AUTO) 78.3 % (43.0-81.0); PLATELET COUNT (AUTO) 182 /CMM (150-450); RDW COEFFICIENT OF VARIATION 13.7 (11.5-15.0); RED BLOOD CELL COUNT(AUTO) 3.17 MIL/uL (4.0-5.2); WHITE BLOOD COUNT (AUTO) 8.1 K/uL (4.3-11.0)
[2018-07-22] MEDS: BLOOD SUGAR DIAGNOSTIC 1 EACH STRIP IN SCH ×4 (05:10→23:34)
[2018-07-22 05:19] LABS: CALCIUM, SERUM 8.2 mg/dL (8.5-10.1); CREATININE 0.8 mg/dL (0.6-1.3); MAGNESIUM 1.5 mg/dL (1.8-2.4); POTASSIUM 3.8 mmol/L (3.5-5.1)
--- NOTE | 2018-07-22 05:51 | NUR ---
RN NOTES PATIENT RESTED WELL ON DIPRIVAN @ 35 MCG/KG/MIN AT THIS TIME TITRATED TOLERATED. ABLE TO OPEN EYES. CALM AND COOPERATIVE. NO ACUTE RESPIRATORY DISTRESS. REMAINED SR O TELE MONITOR. AFEBRILE. OGT KEPT IN PLACED W/ ZERO RESIDUAL. 2 IV SITE INTACT AND PATENT. F/C DRAINED IN GRAVITY.NO S/S/ OF HPO OR HYPERGLYCEMIA INSULIN PER S.S EFFECTIVE. KEPT PT CLEAN AND DRY. WILL ENDORSED TO AM SHIFT TO WAIT FOR THE FAMILY BEFORE DOING SPONTANEOUS BREATHING TRIAL PER FAMILY REQUEST.
[2018-07-22] MEDS: METOPROLOL TARTRATE 25 MG TABLET GT SCH ×4 (06:24→23:37)
--- NOTE | 2018-07-22 07:34 | NUR ---
INITIAL CLOTHES WRINGER NOTE RCVD PT SEDATED ON DIPRIVAN, INTUBATED TOLERATING ORDERED VENT SETTINGS WELL. SR ON TELE OG-TUBE CLAMPED, PLACEMENT VERIFIED BY AUSCULTATION/ASPIRATION. MERCEDES TO GRAVITY DRAINING CLOUDY, YELLOW URINE WITH GREEN TINT. IV SITES C/D/I/PATENT NO S/O INFILTRATION/PHLEBITIS OBSERVED UPON FLUSHING. WILL CONTINUE TO MONITOR PT FOR SAFETY AND COMFORT. CALL LIGHT WITHIN REACH. BED IN LOW AND LOCKED POSITION. WEANING TRIAL FOR TODAY.
[2018-07-22] MEDS: PANTOPRAZOLE 40 MG VIAL IV SCH (08:30)
[2018-07-22] MEDS: PAROXETINE HCL 10 MG TABLET PO SCH (08:30)
[2018-07-22] MEDS: ATORVASTATIN 40 MG TABLET PO SCH (08:30)
[2018-07-22] MEDS: Magnesium 1GM/D5W 100ML PREMIX 100 ML IV SCH ×2 (08:30→10:37)
[2018-07-22] MEDS: MONTELUKAST SODIUM (10MG) 10 MG TABLET PO SCH (08:30)
[2018-07-22] MEDS: MECLIZINE HCL 12.5 MG TABLET PO SCH (08:30)
[2018-07-22] MEDS: MEMANTINE HCL 5 MG TABLET PO SCH (08:30)
[2018-07-22] MEDS: AMLODIPINE BESYLATE 5 MG TABLET PO SCH (08:31)
[2018-07-22] MEDS: Z GUARD REMEDY 2 OZ OINT TP SCH (08:34)
[2018-07-22] MEDS: ACETAMINOPHEN 650 MG/20.3 ML UDC NG PRN (08:43)
[2018-07-22] MEDS ORDERED: THEOPHYLLINE ANHYDROUS 300 MG PO SCH (09:00)
[2018-07-22] MEDS ORDERED: predniSONE 20 MG TABLET PO SCH (09:00)
[2018-07-22] MEDS ORDERED: ASPIRIN EC 81 MG TABLET.DR PO SCH (09:00)
[2018-07-22] MEDS ORDERED: LOSARTAN POTASSIUM 50 MG TABLET PO SCH (09:00)
[2018-07-22 09:08] LABS: ABG BASE EXCESS -9.2 mmol/L; ABG OXYGEN SATURATION 97.4 % (92.0-98.5); ABG PCO2 39.1 mmHg (35.0-45.0); ABG PH 7.261 (7.350-7.450); ABG PO2 123.7 mmHg (75.0-100.0); AaDO2 116.5 mmHg; COHb 0.3 % (0.5-1.5); MetHb 0.4 % (0.0-1.5); O2Hb 96.7 % (94.0-97.0); PEEP,BG 5 cm H2O; SITE, ABG Right Radial; VENT MODE, BG SIMV 4 PS12
--- NOTE | 2018-07-22 09:23 | NUR ---
DIRECTOR BUSINESS TRAVEL NOTE SEDATION VACATION DONE, WEANING TRIAL FINISHED. PT SHOWING NO S/O DISTRESS DURING TRIAL, VITAL SIGNS STABLE. ABG DONE PT ON METABOLIC ACIDOSIS. DR. PEREZ RECOMMENDED TO PLACE PT BACK ON AC MODE WITH PEEP THIS TIME SINCE SBP IS WNL. PT PLACED BACK ON DIPRIVAN WILL TITRATE NEEDED AND CONTINUE TO MONITOR PT.
[2018-07-22] MEDS ORDERED: ERGOCALCIFEROL (VITAMIN D 2) 50,000 UNIT CAPSULE PO SCH (10:00)
[2018-07-22] MEDS: LOSARTAN POTASSIUM 25 MG TABLET PO SCH (10:30)
[2018-07-22] MEDS ORDERED: GLUCERNA 1.2 1,000 ML BOTTLE NG PRN ×2 (10:30→11:40)
[2018-07-22] MEDS: methylPREDNISolone SOD SUCC 125 MG/2ML VIAL IV SCH ×2 (10:37→21:24)
[2018-07-22] MEDS: ALBUTEROL HALF STRENGTH 1.25 MG/3 ML VIAL.NEB NEB SCH ×5 (11:13→23:18)
[2018-07-22] MEDS: IPRATROPIUM NEB FS 0.5 MG/2.5 ML AMPUL.NEB NEB SCH ×4 (11:13→23:18)
--- NOTE | 2018-07-22 11:35 | NUR ---
HHN TREATMENT STARTED AT 11:13
--- NOTE | 2018-07-22 11:39 | NUR ---
PT RECEIVED ORALLY INTUBATED ON MECHANICAL VENT W/ SETTINGS PER MD. VENT IN RED OUTLET, AMBUBAG AT BEDSIDE, VENT ALARMS CHECKED AND AUDIBLE. PT SX'ED AND LAVAGED PRN. MEDS GIVEN INLINE PER MD ORDER. BREATH SOUNDS EQUAL, DIMINISHED. ETT SECURED, PATENT AND CLEAN. SIMV WEANING INITIATED, ABG DRAWN AND REPORTED TO DR. PEREZ AT BEDSIDE. PT PLACED BACK ON AC. PLAN IS TO CONTINUE CARE UNDER CURRENT MD ORDERS AND MONITOR FOR CHANGES.
[2018-07-22] MEDS: INSULIN REGULAR, HUMAN 100 UNIT/ML 3 ML VIAL SQ PRN ×3 (12:20→23:36)
[2018-07-22] MEDS ORDERED: DEXTROSE 50%-WATER 50 ML DISP.SYRIN IV PRN (17:00)
[2018-07-22] MEDS: LACTOBACILLUS RHAMNOSUS GG 1 EACH CAP.SPRINK PO SCH (17:34)
[2018-07-22] MEDS: Z GUARD REMEDY 2 OZ OINT TP PRN (17:40)
--- NOTE | 2018-07-22 18:41 | NUR ---
UPHOLSTERY REPAIRER NOTE PT REMAINS LIGHTLY SEDATED, ABLE TO FOLLOW SIMPLE COMMANDS, OPEN EYES TO SPEECH, INTUBATED WITH MODERATE ORAL SECRETIONS. OG-TUBE PLACEMENT VERIFIED NO RESIDUAL FROM TUBE FEEDING OBTAINED. TOLERATING WELL. MERCEDES TO GRAVITY DRAINING CLOUDY,, YELLOW URINE. IV SITES C/D/I/PATENT. NO S/O INFILTRATION/PHLEBITIS OBSERVED UPON FLUSHING. PT'S CARE WILL BE ENDORSED TO BULK PLANT OPERATOR RN FOR CONTINUITY OF CARE. BED IN LOW AND LOCKED POSITION.
--- NOTE | 2018-07-22 19:20 | NUR ---
RN NOTE RECEIVED PT AWAKE, ABLE TO FOLLOW SIMPLE COMMANDS, EYES OPEN DENIES PAIN. NO RESPIRATORY DISTRESS, INTUBATED WITH ETT 7.5, 22 CM AT LIP, CONNECTED TO VENT SETTING AC 16 TV 500 FIO2 40% PEEP 5. SX'D WITH THICK WHITISH SECRETION ORALLY AND VIA ETT, SATURATION 100% SR ON TELE MONITOR. OGT IN PLACED PATENCY VERIFIED. ZERO RESIDUAL. RESUME GTF GLUCERNA AT 40 ML/HR. IV SITE ON RAC WITH DIPRIVAN AT 30 MCG/KG/MIN, LFA SL. F/C TO GRAVITY DRAINING W/ YELLOW URINE. REPOSITIONED PT FOR COMFORT ANS SKIN MANAGEMENT.
--- NOTE | 2018-07-22 20:21 | NUR ---
RECEIVED PT INTUBATED 7.5 ETT SECURED AT 22CM AT THE LIP. NO RESP DISTRESS NOTED. PT TOLERATING VENT SETTINGS. SX'D FOR MOD AMT OF THICK CHÁVEZ SECRETIONS. VENT ALARMS SET AND AUDIBLE. AMBU BAG AT BEDSIDE. VENT PLUGGED INTO RED OUTLET. WILL CONTINUE TO MONITOR. Addendum: 07/22/18 at 2022 by JP RAY RT Amended: Links added.
[2018-07-22] MEDS: CEFTRIAXONE 1 G in IV D5W 50 ML IV SCH (20:32)
[2018-07-22] MEDS: LEVOFLOXACIN 750 MG /D5W 150ML 150 ML IV SCH (21:24)
[2018-07-22] MEDS: GABAPENTIN 300 MG CAPSULE PO SCH (21:24)
[2018-07-22] MEDS: ENOXAPARIN SODIUM 40 MG/0.4 ML DISP.SYRIN SQ SCH (21:25)
[2018-07-23] VITALS (58 sets, daily range): BP systolic 93–174; BP diastolic 39–118
[2018-07-23] MEDS: ALBUTEROL HALF STRENGTH 1.25 MG/3 ML VIAL.NEB NEB SCH ×6 (03:24→23:18)
[2018-07-23] MEDS: IPRATROPIUM NEB FS 0.5 MG/2.5 ML AMPUL.NEB NEB SCH ×6 (03:25→23:18)
[2018-07-23 05:02] LABS: CALCIUM, SERUM 8.6 mg/dL (8.5-10.1); CREATININE 1.1 mg/dL (0.6-1.3); POTASSIUM 4.4 mmol/L (3.5-5.1)
[2018-07-23] MEDS: methylPREDNISolone SOD SUCC 125 MG/2ML VIAL IV SCH (05:17)
[2018-07-23] MEDS: METOPROLOL TARTRATE 25 MG TABLET GT SCH ×3 (05:18→18:13)
[2018-07-23] MEDS: BLOOD SUGAR DIAGNOSTIC 1 EACH STRIP IN SCH ×3 (05:22→16:32)
[2018-07-23] MEDS: INSULIN REGULAR, HUMAN 100 UNIT/ML 3 ML VIAL SQ PRN ×3 (05:23→16:33)
[2018-07-23] MEDS: PROPOFOL 100 ML IV PRN (05:26)
[2018-07-23 06:13] LABS: HEMATOCRIT 31 % (33-45); HEMOGLOBIN 10.6 g/dL (11.5-14.8); MEAN CORPUSCULAR HGB CONC 34 g/dl (31.0-36.0); MEAN CORPUSCULAR VOLUME 94 fL (82-100); PLATELET COUNT (AUTO) 177 /CMM (150-450); RDW COEFFICIENT OF VARIATION 14.3 (11.5-15.0); RED BLOOD CELL COUNT(AUTO) 3.34 MIL/uL (4.0-5.2); WHITE BLOOD COUNT (AUTO) 9.9 K/uL (4.3-11.0)
[2018-07-23 06:14] LABS: BASOPHILS % (AUTO) 0.2 % (0.0-2.0); LYMPHOCYTES % (AUTO) 4.5 % (20.0-44.0); MONOCYTES % (AUTO) 3.3 % (2.0-12.0)
--- NOTE | 2018-07-23 07:06 | NUR ---
RN NOTES PT REMAINED IN THE SAME CONDITION , CONTINUE WITH THE SAME SETTING. TOLERATED WELL. NO ACUTE RESP DISTRESS. PT STILL ON DIPRIVAN @ 25 MCK/KG/MIN CALM AND COOPERATIVE. SR ON TELE MONITOR. OGTF TOLERATED WELL WITH NO RESIDUAL. IV SITE ON RAC G 18 AND LFA G 20 INTACT AND PATENT. F/C DRAINED WITH ADEQ AMT URINE OUTPUT. HIGH BLOOD SUGAR PRESENT INSULIN PER SLIDING SCALE GIVEN ORDERED. KEPT PT CLEAN AND DRY. WILL ENDORSED CONTINUTIY OF CARE TO AM NURSE.
[2018-07-23] MEDS: PANTOPRAZOLE 40 MG VIAL IV SCH (08:30)
[2018-07-23] MEDS: LACTOBACILLUS RHAMNOSUS GG 1 EACH CAP.SPRINK PO SCH ×2 (08:33→18:12)
[2018-07-23] MEDS: ASPIRIN 81 MG TAB.CHEW PO SCH (08:34)
[2018-07-23] MEDS: MONTELUKAST SODIUM (10MG) 10 MG TABLET PO SCH (08:34)
[2018-07-23] MEDS: MEMANTINE HCL 5 MG TABLET PO SCH (08:36)
[2018-07-23] MEDS: ATORVASTATIN 40 MG TABLET PO SCH (08:36)
[2018-07-23] MEDS: MECLIZINE HCL 12.5 MG TABLET PO SCH (08:37)
[2018-07-23] MEDS: PAROXETINE HCL 10 MG TABLET PO SCH (08:37)
[2018-07-23] MEDS: Z GUARD REMEDY 2 OZ OINT TP SCH (08:42)
[2018-07-23 08:52] LABS: ABG BASE EXCESS -5.3 mmol/L; ABG OXYGEN SATURATION 97.1 % (92.0-98.5); ABG PCO2 34.8 mmHg (35.0-45.0); ABG PH 7.363 (7.350-7.450); ABG PO2 111.9 mmHg (75.0-100.0); AaDO2 133.3 mmHg; COHb 0.2 % (0.5-1.5); MetHb 0.8 % (0.0-1.5); O2Hb 96.1 % (94.0-97.0); PEEP,BG 5 cm H2O; SITE, ABG Right Radial; VT, ABG 500 mL
[2018-07-23] MEDS: FUROSEMIDE 40 MG/4 ML VIAL IV SCH (09:34)
[2018-07-23] MEDS: LOSARTAN POTASSIUM 25 MG TABLET PO SCH (10:08)
[2018-07-23] MEDS: AMLODIPINE BESYLATE 5 MG TABLET PO SCH (10:08)
--- NOTE | 2018-07-23 10:13 | NUR ---
PATIENT RESTING IN BED. CALM, FOLLOWING COMMANDS AROUSABLE TO NAME AND TOUCH, WILL CONTINUE TO MONITOR
[2018-07-23] MEDS ORDERED: DC PROPOFOL WHEN EXTUBATED XX PRN (10:44)
--- NOTE | 2018-07-23 10:47 | NUR ---
PER DR DELGADO, EXTUBATE PATIENT
--- NOTE | 2018-07-23 10:50 | NUR ---
RT PER DR DELGADO ORDER PATIENT WAS WEANED ON VENTILATOR AND EXTUBATED. PATIENT PLACED ON 2L N/C EMILY WELL. PATIENT AWAKE RESPONSIVE AND IN NO RESPIRATORY DISTRESS AT THIS TIME. WILL CONTINUE TO MONITOR CLOSELY.
--- NOTE | 2018-07-23 10:59 | NUR ---
0715: RECEIVED PATIENT RESTING IN BED. PATIENT SEDATED, ON PROPOFOL AT 25 MCG/MIN. NONLABORED BREATHING NOTED ON CURRENT ORDERED VENT SETTINGS. ET TUBE 2.5 WITH 22 CM AT LIP IV SITE ON RIGHT AC 18 PATENT AND INTACT. LT AC GAUGE 20 PATENT AND INTACT. PATIENT SINUS RHYTHM ON TELE MONITOR WITH HR 60S. OG-TUBE PATENT AND INTACT, MERCEDES CATHETER INTACT AND DRAINING CLEAR YELLOW URINE. BILATERAL SOFT RESTRAINTS APPLIED ON UPPER EXTREMITIES DUE TO PERIODS OF AGITATION AND PATIENT ATTEMPTED TO PULL OUT TUBES , PULSES STRONG, CAPILLARY REFILL LESS THAN 3 SECONDS BED IN LOWEST LOCKED POSITION. ASPIRATION PRECAUTIONS IMPLEMENTED SEDATION VACATION, 0730 PROPOFOL DECREASED TO 20 MCG/MIN AT 0730 15 MCG/MIN AT 0735-- 10 MCG -- PATIENT OPENING EYES, AROUSABLE TO NAME AND TOUCH. FOLLOWING COMMANDS. ABLE TO RAISE ARMS AND LEGS. PATIENT CALM THROUGHOUT SEDATION VACATION 0942- PER DR DELGADO , PLACE PATIENT ON CPAP 1000- PATIENT CALM, FOLLOWING COMMANDS, AROUSABLE TO NAME AND TOUCH. 1047- PER DR DELGADO EXTUBATE PATIENT 11:11 S/P EXTUBATION- PATIENT RESTING IN BED. NONLABORED BREATHING NOTED ON 2 L NASAL CANNULA . SPO2 AT 97% . SUCTION AT BEDSIDE. PATIENT AOX2 , FOLLOWING COMMANDS, FAMILY AT BEDSIDE
--- NOTE | 2018-07-23 11:21 | NUR ---
RESTRAINTS REMOVED. NO SIGNS OF AGITATION NOTED
--- NOTE | 2018-07-23 14:31 | NUR ---
CLEAR LIQUID DIET ORDERED. NO SIGNS OF ASPIRATION UPON ASSESSMENT
[2018-07-23] MEDS ORDERED: INSULIN REGULAR, HUMAN 100 UNIT/ML 3 ML VIAL SQ PRN (17:00)
[2018-07-23] MEDS ORDERED: DEXTROSE 50%-WATER 50 ML DISP.SYRIN IV PRN (17:00)
[2018-07-23] MEDS ORDERED: *INSULIN REGULAR(HUMULIN R)HUM 100 UNIT/ML VIAL SQ PRN (17:00)
--- NOTE | 2018-07-23 17:38 | NUR ---
BLOOD SUGAR 1435-BLOOD SUGAR NOTED TO BE 352- 10 UNITS GIVEN PER PROTOCOL 1630- 442- 10 UNITS INSULIN GIVEN PER PROTOCOL RECHECK NOTED TO BE AT 396 DR BUTCHER NOTIFIED PER HIS ORDERS, ADMINISTER 15 MORE UNITS OF REGULAR INSULIN VERBAL READBACK DONE
[2018-07-23] MEDS ORDERED: INSULIN REGULAR, HUMAN 100 UNIT/ML 10 ML VIAL SQ ONE (18:00)
[2018-07-23] MEDS: BLOOD SUGAR DIAGNOSTIC 1 EACH STRIP VI SCH ×2 (18:13→22:11)
[2018-07-23] MEDS: methylPREDNISolone SOD SUCC 40 MG/ML VIAL IV SCH (18:15)
--- NOTE | 2018-07-23 18:49 | NUR ---
RN CLOSING NOTES: PATIENT RESTING IN BED. NONLABORED BREATHING NOTED ON 2 L NASAL CANNULA. NO SIGNS OF DISTRESS NOTES. PATIENT AROUSABLE TO NAME AND TOUCH. AX1-2 PASHTO SPEAKING . IV SITE ON RIGHT AC GAUGE 18 PATENT AND INTACT WELL LEFT FA GAUGE 20. MERCEDES CATHETER REMOVED AT 1500- PATIENT CONTINOUSLY MONITORED FOR RETENTION. PATIENT NOTED TO BE DRY AT THE MOMENT, SEE INTAKE NOTE. WILL ENDORSED TO NEXT RN. NO SIGNS OF ASPIRATION NOTED ON SHIFT PATIENT NOTED TO BE SR ON TELE MONITOR WITH HR 90S. BED IN LOWEST LOCKED POSITION . PATIENT KEPT CLEAN AND DRY THROUGHOUT SHIFT. TURNED AND REPOSITIONED EVERY 2 HOURS. CALL LIGHT WITHIN REACH. WILL ENDORSE TO NEXT SHIFT
[2018-07-23] MEDS: CEFTRIAXONE 1 G in IV D5W 50 ML IV SCH (20:05)
--- NOTE | 2018-07-23 20:10 | NUR ---
ICU/ICE CREAM SHOP ASSOCIATE FAMILY AT BEDSIDE, ASKED ABOUT PROGRESS AND NEXT STEP SINCE PT WAS NEWLY EXTUBATED TODAY, 07/23/18. PROVIDED UPDATE ALSO NOTIFIED FAMILY THAT POSSIBLE D/C FROM ICU TO ANOTHER UNIT SINCE TOMORROW WILL BE 24 HRS POST EXTUBATION. FAMILY REMAINS AT BEDSIDE.
[2018-07-23] MEDS: LEVOFLOXACIN (750 MG) 750 MG TABLET NG SCH (21:45)
[2018-07-23] MEDS: GABAPENTIN 300 MG CAPSULE PO SCH (21:45)
[2018-07-23] MEDS: ENOXAPARIN SODIUM 40 MG/0.4 ML DISP.SYRIN SQ SCH (21:46)
[2018-07-23] MEDS: INSULIN GLARGINE, 100 UNIT/ML CARTRIDGE SQ SCH (22:15)
--- NOTE | 2018-07-23 22:45 | NUR ---
ICU/DRIVER ENGINEER PT'S BLOOD SUGAR WAS 264, THIS WAS COVERED WITH 20 LANTUS. WILL CONTINUE TO CHECK BLOOD SUGAR ORDERED FROM MD AND HOSPITAL PROTOCOL.
[2018-07-24] VITALS (18 sets, daily range): BP systolic 107–137; BP diastolic 54–79
--- NOTE | 2018-07-24 00:30 | NUR ---
ICU/FURNACE COOLER BLOOD SUGAR WAS CHECKED JUST A PRECAUTIONARY, PT HAD BEEN HAVING HIGH BLOOD SUGARS HIGHER THAN NORMAL WAS 265. WILL CONTINUE TO CHECK ORDERED BY MD.
[2018-07-24] MEDS: METOPROLOL TARTRATE 25 MG TABLET GT SCH ×4 (01:00→19:15)
--- NOTE | 2018-07-24 02:45 | NUR ---
ICU/MANAGER USER INTERFACE PT WAS GIVEN AM CARE, ALONG WITH ORAL CARE, PT TOLERATED THIS WELL. PT REMAINS ON CURRENT 02 SETTINGS OF 2 LITERS VIA N/C WITH SATURATION AT 98%. PT WAS TURNED AND REPOSITIONED FOR COMFORT AND CARE. NO ACUTE DISTRESS SEEN. NO PAIN REPOSTED AT THIS TIME.
[2018-07-24] MEDS: ALBUTEROL HALF STRENGTH 1.25 MG/3 ML VIAL.NEB NEB SCH ×6 (03:00→23:50)
[2018-07-24] MEDS: IPRATROPIUM NEB FS 0.5 MG/2.5 ML AMPUL.NEB NEB SCH ×6 (03:00→23:50)
--- NOTE | 2018-07-24 04:45 | NUR ---
ICU/VP MARKETING SERVICES AND SKIN AM LABS WERE DONE, ALONG WITH CHEST XRAY. AWAIT ANY ABNORMAL VALUES.
[2018-07-24 04:57] LABS: EOSINOPHILS % (AUTO) 0.1 % (0.0-6.0); HEMATOCRIT 31 % (33-45); LYMPHOCYTES # (AUTO) 0.7 /CMM (0.8-4.8); LYMPHOCYTES % (AUTO) 6.2 % (20.0-44.0); MEAN CORPUSCULAR HGB CONC 33 g/dl (31.0-36.0); MEAN CORPUSCULAR VOLUME 94 fL (82-100); MONOCYTES # (AUTO) 0.8 /CMM (0.1-1.30); MONOCYTES % (AUTO) 6.6 % (2.0-12.0); NEUTROPHILS # (AUTO) 10.2 /CMM (1.8-8.9); NEUTROPHILS % (AUTO) 87.1 % (43.0-81.0); PLATELET COUNT (AUTO) 217 /CMM (150-450); RDW COEFFICIENT OF VARIATION 14.9 (11.5-15.0); RED BLOOD CELL COUNT(AUTO) 3.26 MIL/uL (4.0-5.2); WHITE BLOOD COUNT (AUTO) 11.8 K/uL (4.3-11.0)
[2018-07-24 05:13] LABS: CALCIUM, SERUM 8.7 mg/dL (8.5-10.1); CREATININE 0.9 mg/dL (0.6-1.3); PHOSPHORUS 3.7 mg/dL (2.5-4.9); POTASSIUM 4.4 mmol/L (3.5-5.1)
[2018-07-24] MEDS: BLOOD SUGAR DIAGNOSTIC 1 EACH STRIP VI SCH (05:49)
--- NOTE | 2018-07-24 06:59 | NUR ---
ICU/SOLID DIE CUTTER PT'S BLOOD SUGAR IS 294. COVERED WITH 9 UNITS REGULAR INSULIN. WILL CONTINUE TO MONITOR PT'S BLOOD SUGAR.
[2018-07-24] MEDS: FUROSEMIDE 40 MG/4 ML VIAL IV SCH (07:40)
[2018-07-24] MEDS ORDERED: DEXTROSE 50%-WATER 50 ML DISP.SYRIN IV PRN (08:00)
[2018-07-24] MEDS: MECLIZINE HCL 12.5 MG TABLET PO SCH (08:16)
[2018-07-24] MEDS: ASPIRIN 81 MG TAB.CHEW PO SCH (08:16)
[2018-07-24] MEDS: LACTOBACILLUS RHAMNOSUS GG 1 EACH CAP.SPRINK PO SCH ×2 (08:16→17:11)
[2018-07-24] MEDS: AMLODIPINE BESYLATE 5 MG TABLET PO SCH (08:16)
[2018-07-24] MEDS: PAROXETINE HCL 10 MG TABLET PO SCH (08:16)
[2018-07-24] MEDS: MEMANTINE HCL 5 MG TABLET PO SCH (08:16)
[2018-07-24] MEDS: ATORVASTATIN 40 MG TABLET PO SCH (08:16)
[2018-07-24] MEDS: MONTELUKAST SODIUM (10MG) 10 MG TABLET PO SCH (08:17)
[2018-07-24] MEDS: LOSARTAN POTASSIUM 25 MG TABLET PO SCH (08:17)
[2018-07-24] MEDS: Z GUARD REMEDY 2 OZ OINT TP SCH (08:17)
[2018-07-24] MEDS: methylPREDNISolone SOD SUCC 40 MG/ML VIAL IV SCH ×2 (08:17→17:11)
[2018-07-24] MEDS: PANTOPRAZOLE 40 MG VIAL IV SCH (08:17)
--- NOTE | 2018-07-24 11:10 | NUR ---
RN NOTE 0720: Received patient awake, A/Ox3, Maori speaking. On 2LPM of O2 via NC tolerated, no respiratory distress noted at this time. With PIVs intact. On diaper, encouraged to call for assistance. Kept call light at reach. 0800: S/E by Dr. Li, with order to transfer to Tele, and PT eval. CN aware. 0830: S/E by ST, advanced diet to [facility] soft diet. 0930: S/E by Dr. Mon, agreed for Tele transfer. 1100: S/E by PT, tried to place patient to commode but noted patient still really weak, informed patient to keep in bed for now and ask for bed cordova of needed. Family at bedside, updated re: patient's condition.
[2018-07-24] MEDS: BLOOD SUGAR DIAGNOSTIC 1 EACH STRIP IN SCH ×3 (12:11→21:26)
[2018-07-24] MEDS: INSULIN REGULAR, HUMAN 100 UNIT/ML 3 ML VIAL SQ PRN ×2 (12:14→17:28)
--- NOTE | 2018-07-24 12:42 | NUR ---
RN NOTE Report given to Beck for ALLEY. Patient has no any significant changes noted. VSS. Kept clean, warm and dry. Needs attended. Kept call light at reach. Checked belongings, Yumi said that she has her jeweleries. Transferred via ACLS protocol.
--- NOTE | 2018-07-24 12:45 | NUR ---
MANAGER PROPOSAL OPENING NOTE RECEIVED PATIENT FROM ICU IN STABLE CONDITION. PATIENT PLACED ON EXTERNAL MEDICAL OFFICE TECHNOLOGY INSTRUCTOR, SINUS RHYTHM ON THE MONITOR, HEART RATE 79. R 20, BP 118/60, SPO2 94% ON 2LPM VIA NASAL CANNULA. ORIENTED TO UNIT, GERMAN SPEAKING. IV SITES ON RAC AND LFA INTACT SALINE LOCK. PATIENT ABLE TO MAKE NEEDS KNOWN. HEAD OF BED ELEVATED, BED LOW AND LOCKED, CALL LIGHT WITHIN REACH, WILL CONTINUE TO MONITOR CLOSELY.
[2018-07-24] MEDS: ACETAMINOPHEN 650 MG/20.3 ML UDC NG PRN (14:34)
--- NOTE | 2018-07-24 19:39 | NUR ---
HUMAN RESOURCES OFFICER CLOSING NOTE PATIENT RESTING IN BED IN STABLE CONDITION, SINUS TACHY WITH A HEART RATE OF 101 ON SKI TOW OPERATOR. NO RESPIRATORY DISTRESS OR COMPLAINT OF PAIN. BED LOW AND LOCKED, HEAD OF BED ELEVATED, CALL LIGHT WITHIN REACH, WILL ENDORSE TO ONCOMING NURSE FOR CONTINUITY OF CARE.
[2018-07-24] MEDS: ENOXAPARIN SODIUM 40 MG/0.4 ML DISP.SYRIN SQ SCH (21:12)
[2018-07-24] MEDS: GABAPENTIN 300 MG CAPSULE PO SCH (21:12)
[2018-07-24] MEDS: INSULIN GLARGINE, 100 UNIT/ML CARTRIDGE SQ SCH (21:31)
[2018-07-24] MEDS: *INSULIN REGULAR(HUMULIN R)HUM 100 UNIT/ML VIAL SQ PRN (21:35)
[2018-07-25] VITALS: BP 138/94
[2018-07-25] MEDS: METOPROLOL TARTRATE 25 MG TABLET GT SCH ×5 (00:50→23:53)
[2018-07-25] MEDS: IPRATROPIUM NEB FS 0.5 MG/2.5 ML AMPUL.NEB NEB SCH ×5 (03:59→19:46)
[2018-07-25 04:00] VITALS: BP 158/77
[2018-07-25] MEDS: ALBUTEROL HALF STRENGTH 1.25 MG/3 ML VIAL.NEB NEB SCH ×5 (04:00→19:46)
--- NOTE | 2018-07-25 07:10 | NUR ---
CAR REPAIRER HELPER OPENING NOTE RECEIVED PATIENT IN STABLE CONDITION RESTING IN BED, SINUS RHYTHM ON PRESCHOOL ASSISTANT TEACHER, HEART RATE IN THE 80S. ON OXYGEN VIA NASAL CANNULA AT 2LPM. NO RESPIRATORY DISTRESS NOTED OR COMPLAINT OF PAIN. PERIODS OF CONFUSION, ATTEMPTING TO GET OUT OF BED UNASSISTED. ENCOURAGED PATIENT TO USE CALL LIGHT AND ASK FOR HELP IF SHE NEEDS ANYTHING. HEAD OF BED ELEVATED, BED LOW AND LOCKED, ALARM ON, WILL CONTINUE TO MONITOR CLOSELY.
[2018-07-25 08:00] VITALS: BP 148/67
[2018-07-25] MEDS: methylPREDNISolone SOD SUCC 40 MG/ML VIAL IV SCH ×2 (08:54→18:26)
[2018-07-25] MEDS: FUROSEMIDE 40 MG/4 ML VIAL IV SCH (08:54)
[2018-07-25] MEDS: PANTOPRAZOLE 40 MG VIAL IV SCH (08:54)
[2018-07-25] MEDS: MONTELUKAST SODIUM (10MG) 10 MG TABLET PO SCH (08:55)
[2018-07-25] MEDS: ATORVASTATIN 40 MG TABLET PO SCH (08:55)
[2018-07-25] MEDS: ASPIRIN 81 MG TAB.CHEW PO SCH (08:55)
[2018-07-25] MEDS: MEMANTINE HCL 5 MG TABLET PO SCH (08:55)
[2018-07-25] MEDS: PAROXETINE HCL 10 MG TABLET PO SCH (08:55)
[2018-07-25] MEDS: LACTOBACILLUS RHAMNOSUS GG 1 EACH CAP.SPRINK PO SCH ×2 (08:55→17:00)
[2018-07-25] MEDS: MECLIZINE HCL 12.5 MG TABLET PO SCH (08:55)
[2018-07-25] MEDS: LOSARTAN POTASSIUM 25 MG TABLET PO SCH (08:56)
[2018-07-25] MEDS: AMLODIPINE BESYLATE 5 MG TABLET PO SCH (08:57)
[2018-07-25] MEDS: BLOOD SUGAR DIAGNOSTIC 1 EACH STRIP IN SCH ×4 (09:07→21:45)
[2018-07-25] MEDS: INSULIN REGULAR, HUMAN 100 UNIT/ML 3 ML VIAL SQ PRN ×3 (09:07→18:25)
[2018-07-25] MEDS: Z GUARD REMEDY 2 OZ OINT TP SCH (09:08)
[2018-07-25 12:00] VITALS: BP 159/75
[2018-07-25 16:00] VITALS: BP 134/59
--- NOTE | 2018-07-25 19:10 | NUR ---
M/S NOTE RECEIVED PATIENT AOX2, WITH PERIODS OF CONFUSION, JAPANESE SPEAKING, ON BEDREST, INCONTINENT, SKIN KEPT CLEAN AND DRY, LFA #22G SL, PATENT FLUSHING WELL, SITE IS CLEAN AND DRY. BED ALARM IN PLACE FOR FALL PRECAUTIONS, CALL LIGHT WITHIN REACH, SAFETY MAINTAINED AT ALL TIMES, BED IN LOW LOCKED POSITION, WILL CONTINUE TO MONITOR FOR ANY CHANGES IN CONDITION.
[2018-07-25 20:00] VITALS: BP 169/75
--- NOTE | 2018-07-25 20:02 | NUR ---
WALL COVERING INSTALLER CLOSING NOTE PATIENT RESTING IN BED, NO RESPIRATORY DISTRESS NOTED. NO SIGNS OF PAIN. ON OXYGEN VIA NASAL CANNULA AT 2LPM. IV SITE ON LEFT FOREARM INTACT SALINE LOCK. PATIENT WITH SOME CONFUSION AND REORIENTED TO UNIT FREQUENTLY AND ENCOURAGED TO CALL FOR ASSISTANCE. TURNED AND REPOSITIONED FOR COMFORT. HEAD OF BED ELEVATED, BED LOW AND LOCKED, WILL ENDORSE TO ONCOMING NURSE FOR CONTINUITY OF CARE.
[2018-07-25] MEDS: GABAPENTIN 300 MG CAPSULE PO SCH (21:45)
[2018-07-25] MEDS: ENOXAPARIN SODIUM 40 MG/0.4 ML DISP.SYRIN SQ SCH (21:45)
[2018-07-25] MEDS: INSULIN GLARGINE, 100 UNIT/ML CARTRIDGE SQ SCH (21:51)
[2018-07-25] MEDS: *INSULIN REGULAR(HUMULIN R)HUM 100 UNIT/ML VIAL SQ PRN (21:55)
[2018-07-25] MEDS: LEVOFLOXACIN (750 MG) 750 MG TABLET NG SCH (21:55)
[2018-07-26] MEDS: IPRATROPIUM NEB FS 0.5 MG/2.5 ML AMPUL.NEB NEB SCH ×7 (00:20→23:38)
[2018-07-26] MEDS: ALBUTEROL HALF STRENGTH 1.25 MG/3 ML VIAL.NEB NEB SCH ×7 (00:20→23:38)
[2018-07-26 04:00] VITALS: BP 122/65
[2018-07-26] MEDS: METOPROLOL TARTRATE 25 MG TABLET GT SCH ×4 (06:01→23:56)
--- NOTE | 2018-07-26 07:10 | NUR ---
PHILANTHROPY OFFICER OPENING NOTE PATIENT RESTING IN BED IN STABLE CONDITION, PERIODS OF CONFUSION AND FREQUENTLY REMOVING NASAL CANNULA AND ATTEMPTING TO GET OUT OF BED. REORIENTED PATIENT AND ENCOURAGED TO KEEP NASAL CANNULA ON AND ASK FOR HELP. IV SITE ON LEFT FOREARM INTACT. NO RESPIRATORY DISTRESS NOTED. CALL LIGHT WITHIN REACH, BED LOW AND LOCKED, ALARM ON, WILL CONTINUE TO MONITOR CLOSELY.
[2018-07-26 07:30] LABS: BASOPHILS # (AUTO) 0.1 /CMM (0.0-0.2); BASOPHILS % (AUTO) 0.5 % (0.0-2.0); EOSINOPHILS % (AUTO) 1.2 % (0.0-6.0); HEMATOCRIT 36 % (33-45); HEMOGLOBIN 11.8 g/dL (11.5-14.8); LYMPHOCYTES # (AUTO) 2.4 /CMM (0.8-4.8); LYMPHOCYTES % (AUTO) 16.2 % (20.0-44.0); MEAN CORPUSCULAR HGB CONC 33 g/dl (31.0-36.0); MEAN CORPUSCULAR VOLUME 94 fL (82-100); MONOCYTES # (AUTO) 1.2 /CMM (0.1-1.30); MONOCYTES % (AUTO) 7.9 % (2.0-12.0); NEUTROPHILS # (AUTO) 10.9 /CMM (1.8-8.9); NEUTROPHILS % (AUTO) 74.2 % (43.0-81.0); PLATELET COUNT (AUTO) 298 /CMM (150-450); RDW COEFFICIENT OF VARIATION 14.6 (11.5-15.0); WHITE BLOOD COUNT (AUTO) 14.7 K/uL (4.3-11.0)
[2018-07-26 07:36] LABS: CALCIUM, SERUM 9.2 mg/dL (8.5-10.1); CREATININE 0.9 mg/dL (0.6-1.3); POTASSIUM 3.9 mmol/L (3.5-5.1)
[2018-07-26 08:00] VITALS: BP 114/60
[2018-07-26] MEDS: methylPREDNISolone SOD SUCC 40 MG/ML VIAL IV SCH (08:22)
[2018-07-26] MEDS: ASPIRIN 81 MG TAB.CHEW PO SCH (08:22)
[2018-07-26] MEDS: PANTOPRAZOLE 40 MG VIAL IV SCH (08:22)
[2018-07-26] MEDS: ATORVASTATIN 40 MG TABLET PO SCH (08:23)
[2018-07-26] MEDS: LACTOBACILLUS RHAMNOSUS GG 1 EACH CAP.SPRINK PO SCH ×2 (08:23→17:45)
[2018-07-26] MEDS: MEMANTINE HCL 5 MG TABLET PO SCH (08:23)
[2018-07-26] MEDS: MECLIZINE HCL 12.5 MG TABLET PO SCH (08:23)
[2018-07-26] MEDS: MONTELUKAST SODIUM (10MG) 10 MG TABLET PO SCH (08:24)
[2018-07-26] MEDS: PAROXETINE HCL 10 MG TABLET PO SCH (08:24)
[2018-07-26] MEDS: FUROSEMIDE 40 MG/4 ML VIAL IV SCH (08:24)
[2018-07-26] MEDS: LOSARTAN POTASSIUM 25 MG TABLET PO SCH (08:25)
[2018-07-26] MEDS: AMLODIPINE BESYLATE 5 MG TABLET PO SCH (08:26)
[2018-07-26] MEDS: BLOOD SUGAR DIAGNOSTIC 1 EACH STRIP IN SCH ×4 (08:26→21:41)
[2018-07-26] MEDS: Z GUARD REMEDY 2 OZ OINT TP SCH (08:26)
[2018-07-26] MEDS: INSULIN REGULAR, HUMAN 100 UNIT/ML 3 ML VIAL SQ PRN ×3 (08:32→17:52)
[2018-07-26] MEDS: predniSONE 20 MG TABLET PO SCH (13:39)
--- NOTE | 2018-07-26 15:59 | NUR ---
FOUND PT OFF O2. PT SPO2: 89% ON ROOM AIR. PLACED PT ON 2L NC AND PT SPO2 WENT UP TO 94%. RN AWARE. WILL CONTINUE TO MONITOR.
[2018-07-26 16:00] VITALS: BP 114/52
--- NOTE | 2018-07-26 19:20 | NUR ---
RN M/S NOTE RECEIVED PATIENT AOX2, PERUVIAN SPEAKING, TELE SR, NO S/SX OF RESPIRATORY OR CARDIAC DISTRESS, ON 2L NC, SKIN KEPT CLEAN AND DRY, LFA #22G SL, PATENT FLUSHING WELL, SITE IS CLEAN AND DRY, CALL LIGHT WITHIN REACH, SAFETY MAINTAINED AT ALL TIMES, BED IN LOW LOCKED POSITION, WILL CONTINUE TO MONITOR FOR ANY CHANGES IN CONDITION.
--- NOTE | 2018-07-26 19:43 | NUR ---
ASSISTANT TODDLER TEACHER CLOSING NOTE PATIENT RESTING IN BED, NO RESPIRATORY DISTRESS NOTED. ON OXYGEN VIA NASAL CANNULA AT 2LPM. HEAD OF BED ELEVATED, CALL LIGHT WITHIN REACH, BED LOW AND LOCKED, ALARM ON, WILL ENDORSE TO ONCOMING NURSE FOR CONTINUITY OF CARE.
[2018-07-26 20:00] VITALS: BP 126/57
[2018-07-26] MEDS: GABAPENTIN 300 MG CAPSULE PO SCH (21:42)
[2018-07-26] MEDS: ENOXAPARIN SODIUM 40 MG/0.4 ML DISP.SYRIN SQ SCH (21:42)
[2018-07-26] MEDS: INSULIN GLARGINE, 100 UNIT/ML CARTRIDGE SQ SCH (21:51)
[2018-07-26] MEDS: *INSULIN REGULAR(HUMULIN R)HUM 100 UNIT/ML VIAL SQ PRN (21:53)
[2018-07-27 04:00] VITALS: BP 99/52
[2018-07-27] MEDS: ALBUTEROL HALF STRENGTH 1.25 MG/3 ML VIAL.NEB NEB SCH ×6 (04:07→22:44)
[2018-07-27] MEDS: IPRATROPIUM NEB FS 0.5 MG/2.5 ML AMPUL.NEB NEB SCH ×6 (04:07→22:44)
[2018-07-27] MEDS: METOPROLOL TARTRATE 25 MG TABLET GT SCH ×4 (05:29→23:12)
[2018-07-27] MEDS: ASPIRIN 81 MG TAB.CHEW PO SCH (08:57)
[2018-07-27] MEDS: MEMANTINE HCL 5 MG TABLET PO SCH (08:57)
[2018-07-27] MEDS: ATORVASTATIN 40 MG TABLET PO SCH (08:58)
[2018-07-27] MEDS: MECLIZINE HCL 12.5 MG TABLET PO SCH (08:59)
[2018-07-27] MEDS: LACTOBACILLUS RHAMNOSUS GG 1 EACH CAP.SPRINK PO SCH ×2 (08:59→17:02)
[2018-07-27] MEDS: MONTELUKAST SODIUM (10MG) 10 MG TABLET PO SCH (08:59)
[2018-07-27] MEDS: predniSONE 20 MG TABLET PO SCH (09:00)
[2018-07-27] MEDS: PAROXETINE HCL 10 MG TABLET PO SCH (09:00)
[2018-07-27] MEDS: LOSARTAN POTASSIUM 25 MG TABLET PO SCH (09:01)
[2018-07-27] MEDS: AMLODIPINE BESYLATE 5 MG TABLET PO SCH (09:02)
[2018-07-27] MEDS: PANTOPRAZOLE 40 MG VIAL IV SCH (09:02)
[2018-07-27] MEDS: FUROSEMIDE 40 MG/4 ML VIAL IV SCH (09:03)
[2018-07-27] MEDS: INSULIN REGULAR, HUMAN 100 UNIT/ML 3 ML VIAL SQ PRN ×3 (09:07→17:40)
[2018-07-27] MEDS: BLOOD SUGAR DIAGNOSTIC 1 EACH STRIP IN SCH ×4 (09:11→21:00)
[2018-07-27] MEDS: Z GUARD REMEDY 2 OZ OINT TP SCH (09:12)
--- NOTE | 2018-07-27 10:47 | NUR ---
MS RN NOTE RECEIVED THE PT ON BED.ALERT AND ORIENTED X2 WITH CONFUSION.ITALIAN SPEAKING PT.VITAL SIGNS CHECKED AND RECORDED.HAS 2 L O2 VIA NASAL CANNULA,INCONTINENT.HAD BREAKFAST AND LEFT FA HL IS INTACT.ACCU CHECK HAS DONE.BED IS IN LOWEST POSITION AND ITS LOCKED.BED ALARM IS ON AND RISK FOR FALL.WILL CONTINUE TO MONITOR CLOSELY
--- NOTE | 2018-07-27 15:39 | NUR ---
MS RN NOTES PT UP IN THE CHAIR WITH 2 PERSON ASSISTANCE.PT IS COMFORTABLE ON CHAIR.
[2018-07-27 16:00] VITALS: BP 108/54
[2018-07-27 16:28] VITALS: BP 108/54
--- NOTE | 2018-07-27 17:04 | NUR ---
MS RN NOTE ASSISTED TO GO TO BR USING A WALKER , ALL NEEDS ATTENDED, MADE A BM KEEP ,CLEAN DRY FAMILY AT BEDSIDE
--- NOTE | 2018-07-27 18:25 | NUR ---
MS RN NOTES PT IS CONNECTED WITH B/L DVT PUMP,HAVING DINNER.NO DISTRESS AND CALL LIGHT IS WITH IN REACH.
--- NOTE | 2018-07-27 19:38 | NUR ---
MS RN OPENING NOTES: RECEIVED PT ON 2LPM VIA AND IS ONLY [place] SPEAKING/UNDERSTANDING ONLY. PT IS A/OX2-3. PT HAS BILATERAL DVT PUMPS ON. BED ALARM ACTIVATED. PT IS SITTING UP IN BED WATCHING TELEVISION. LEFT FOREARM #22G IV REMAINS INTACT AND CURRENTLY H/L. CALL LIGHT WITHIN PT'S REACH. BED KEPT IN LOW, LOCKED POSITION, AND SIDE RAILS X 2UP. WILL CONTINUE TO MONITOR PT.
[2018-07-27 20:00] VITALS: BP 110/60
[2018-07-27] MEDS: LEVOFLOXACIN (750 MG) 750 MG TABLET NG SCH (20:51)
[2018-07-27] MEDS: ENOXAPARIN SODIUM 40 MG/0.4 ML DISP.SYRIN SQ SCH (20:51)
[2018-07-27] MEDS: GABAPENTIN 300 MG CAPSULE PO SCH (21:00)
--- NOTE | 2018-07-27 21:01 | NUR ---
MS RN NOTES: GABAPENTIN 300MG HAD TO BE MANUALLY BARCODED SINCE BAR GUN NOT SCANNING.
[2018-07-27] MEDS: *INSULIN REGULAR(HUMULIN R)HUM 100 UNIT/ML VIAL SQ PRN (21:08)
[2018-07-27] MEDS: INSULIN GLARGINE, 100 UNIT/ML CARTRIDGE SQ SCH (21:09)
--- NOTE | 2018-07-27 21:19 | NUR ---
MS RN NOTES: BLOOD SUGAR WAS 355. 10 UNITS OF REGULAR INSULIN WAS ADMINISTERED ALONG WITH 26 UNITS OF LANTUS. SNACK PROVIDED AT BEDSIDE.
[2018-07-28] MEDS: IPRATROPIUM NEB FS 0.5 MG/2.5 ML AMPUL.NEB NEB SCH ×6 (03:29→23:50)
[2018-07-28] MEDS: ALBUTEROL HALF STRENGTH 1.25 MG/3 ML VIAL.NEB NEB SCH ×6 (03:29→23:49)
[2018-07-28 04:00] VITALS: BP 112/55
[2018-07-28] MEDS: METOPROLOL TARTRATE 25 MG TABLET GT SCH ×4 (05:33→23:56)
[2018-07-28 05:38] VITALS: BP 128/68
--- NOTE | 2018-07-28 06:14 | NUR ---
MS RN CLOSING NOTES: ALL NEEDS WERE ATTENDED AND ANTICIPATED FOR. PT KEPT CLEAN, DRY, AND COMFORTABLE. PT REMAINS ON 2LPM VIA NC AND IS TOLERATING WELL. PT ON BILATERAL SCD PUMPS. BED ALARM ACTIVATED. NO SOB OR S/S OF DISTRESS NOTED. CALL LIGHT WITHIN PT'S REACH. BED KEPT IN LOW, LOCKED POSITION, SEMI-WONG'S, AND SIDE RAILS X 2 UP. WILL ENDORSE TO AM NURSE FOR ALLEY.
--- NOTE | 2018-07-28 07:15 | NUR ---
MS RN NOTES PATIENT IN BED EYES CLOSED, RESPONSIVE TO VERBAL AND TACTILE STIMULI. NO ACUTE DISTRESS NOTED. BREATHING UNLABORED. NO SOB NOTED. IV ACCESS PATENT AND INTACT. NO REDNESS OR SWELLING NOTED. SAFETY MEASURES IN PLACE. CALL LIGHT WITHIN REACH. WILL CONTINUE TO MONITOR ACCORDINGLY.
[2018-07-28 08:00] VITALS: BP 112/53
[2018-07-28] MEDS: BLOOD SUGAR DIAGNOSTIC 1 EACH STRIP IN SCH ×4 (08:31→21:47)
[2018-07-28] MEDS: INSULIN REGULAR, HUMAN 100 UNIT/ML 3 ML VIAL SQ PRN ×3 (08:32→17:18)
[2018-07-28] MEDS: predniSONE 20 MG TABLET PO SCH (08:33)
[2018-07-28] MEDS: MECLIZINE HCL 12.5 MG TABLET PO SCH (08:33)
[2018-07-28] MEDS: ATORVASTATIN 40 MG TABLET PO SCH (08:33)
[2018-07-28] MEDS: LOSARTAN POTASSIUM 25 MG TABLET PO SCH (08:33)
[2018-07-28] MEDS: PANTOPRAZOLE 40 MG VIAL IV SCH (08:33)
[2018-07-28] MEDS: LACTOBACILLUS RHAMNOSUS GG 1 EACH CAP.SPRINK PO SCH ×2 (08:34→17:18)
[2018-07-28] MEDS: PAROXETINE HCL 10 MG TABLET PO SCH (08:34)
[2018-07-28] MEDS: MEMANTINE HCL 5 MG TABLET PO SCH (08:34)
[2018-07-28] MEDS: FUROSEMIDE 40 MG/4 ML VIAL IV SCH (08:34)
[2018-07-28] MEDS: ASPIRIN 81 MG TAB.CHEW PO SCH (08:34)
[2018-07-28] MEDS: MONTELUKAST SODIUM (10MG) 10 MG TABLET PO SCH (08:34)
[2018-07-28] MEDS: Z GUARD REMEDY 2 OZ OINT TP SCH (08:35)
[2018-07-28] MEDS: AMLODIPINE BESYLATE 5 MG TABLET PO SCH (09:00)
[2018-07-28 12:00] VITALS: BP 128/62
[2018-07-28 16:00] VITALS: BP 115/54
--- NOTE | 2018-07-28 17:40 | NUR ---
MS RN NOTES PATIENT NOTED BLOOD SUGAR @ 460, PER SLIDING SCALE ADMINISTERED MD AND PAGED DR SIMEON TO NOTIFY, PAGED 2X AWAITING FOR CALL BACK. CEMENT SACK BREAKER CHIVO AND CHARGE NURSE DOLORES AWARE. PATIENT WITH STABLE VITAL SIGNS. ALERT ORIENTED X 3. NO S/SX OF HYPERGLYCEMIA. NO ACUTE DISTRESS NOTED.
--- NOTE | 2018-07-28 17:58 | NUR ---
MS RN NOTES RECHECKED BLOOD SUGAR NOTED 448. PAGED DR SIMEON, AWAITING FOR CALL BACK. PATIENT FINISHED EATING DINNER. ALERT ORIENTED X3. NO ACUTE DISTRESS NOTED. NO S/SX OF HYPERGLYCEMIA NOTED. WILL CONTINUE TO MONITOR PATIENT.
--- NOTE | 2018-07-28 18:07 | NUR ---
MS RN NOTES BAUMANN CALLED BACK , AWARE OF BLOOD SUGAR LEVEL , NO NEW ORDERS MADE AT THIS TIME. WILL CONTINUE TO MONITOR PATIENT
--- NOTE | 2018-07-28 18:48 | NUR ---
MS RN NOTES RECEIVED NEW ORDERS FROM DR SIMEON TO RECHECK BLOOD SUGAR LEVEL 2 HOURS AFTER LAST TIME IT WAS CHECKED . WILL ENDORSE TO NIGHT NURSE. WILL CONTINUE TO MONITOR PATIENT. PATIENT IN STABLE CONDITION. NO S/SX OF HYPERGLYCEMIA OR HYPOGLYCEMIA NOTED.
--- NOTE | 2018-07-28 19:00 | NUR ---
MS RN NOTES PATIENT LYING IN BED, HOB ELEVATED, ALERT ORIENTED X 3. NO ACUTE DISTRESS NOTED. BREATHING UNLABORED. NO ACUTE DISTRESS NOTED. NO SOB NOTED. ON 2LPM VIA NC SATURATING AT 98%. IV ACCESS PATENT AND INTACT, NO REDNESS, NO SWELLING NOTED. DENIED ANY PAIN. NO S/SX OF HYPOGLYCEMIA OR HYPERGLYCEMIA NOTED. DUE MEDICATIONS GIVEN, NO ASE NOTED.NEEDS ATTENDED AND ANTICIPATED. CALL LIGHT WITHIN REACH. ENDORSED TO NIGHT NURSE FOR CONTINUITY OF CARE.
[2018-07-28 20:00] VITALS: BP 103/42
--- NOTE | 2018-07-28 20:11 | NUR ---
MS RN NOTE BS RECHECKED 295, NO INSULIN COVERAGE GIVEN. DAY SHIFT GAVE 20 UNITS EARLIER, WILL RECHECK AT NIGHT PT IN NO DISTRESS OR DISCOMFORT NOTED. DENIES PAIN. SL LFA #22 G INTACT AND PATENT. ALL NEEDS ATTENDED. SIDE RAILS UP X 2 AND CALL LIGHT WITHIN REACH. VSS. CONTINUE TO MONITOR HER.
[2018-07-28] MEDS: GABAPENTIN 300 MG CAPSULE PO SCH (21:36)
[2018-07-28] MEDS: ENOXAPARIN SODIUM 40 MG/0.4 ML DISP.SYRIN SQ SCH (21:37)
[2018-07-28] MEDS: INSULIN GLARGINE, 100 UNIT/ML CARTRIDGE SQ SCH (21:51)
[2018-07-28] MEDS: *INSULIN REGULAR(HUMULIN R)HUM 100 UNIT/ML VIAL SQ PRN (21:54)
[2018-07-29] MEDS: IPRATROPIUM NEB FS 0.5 MG/2.5 ML AMPUL.NEB NEB SCH ×4 (03:27→16:05)
[2018-07-29] MEDS: ALBUTEROL HALF STRENGTH 1.25 MG/3 ML VIAL.NEB NEB SCH ×4 (03:27→16:05)
[2018-07-29 04:00] VITALS: BP 90/49
[2018-07-29] MEDS: METOPROLOL TARTRATE 25 MG TABLET GT SCH ×2 (05:06→12:13)
[2018-07-29] MEDS: BLOOD SUGAR DIAGNOSTIC 1 EACH STRIP IN SCH ×2 (05:44→12:08)
--- NOTE | 2018-07-29 06:41 | NUR ---
MS 1 RN NOTE PT IN BED ASLEEP, AROUSABLE. NO DISTRESS OR DISCOMFORT NOTED. NO S/S OF PAIN NOTED. ALL NEEDS ATTENDED. REPOSITION HER Q2H, SIDE RAILS UP X 3 AND CALL LIGHT WITHIN REACH. WILL ENDORSE TO DAY SHIFT NURSE FOR CONTINUE TO CARE.
[2018-07-29 08:00] VITALS: BP 100/46
--- NOTE | 2018-07-29 08:00 | NUR ---
RN NOTES PATIENT IN BED RESTING NO SOB OR ACUTE DISTRESS NOTED. PATIENT ALERT, ORIENTED X4 WELSH SPEAKING. PERIPHERAL IV INTACT PATENT. BED IN LOW LOCKED POSITION CALL LIGHT WITHIN REACH. WILL CONTINUE TO MONITOR.
[2018-07-29] MEDS: FUROSEMIDE 40 MG/4 ML VIAL IV SCH (08:47)
[2018-07-29] MEDS: PANTOPRAZOLE 40 MG VIAL IV SCH (08:47)
[2018-07-29] MEDS: LACTOBACILLUS RHAMNOSUS GG 1 EACH CAP.SPRINK PO SCH (08:47)
[2018-07-29] MEDS: ATORVASTATIN 40 MG TABLET PO SCH (08:48)
[2018-07-29] MEDS: MONTELUKAST SODIUM (10MG) 10 MG TABLET PO SCH (08:48)
[2018-07-29] MEDS: ASPIRIN 81 MG TAB.CHEW PO SCH (08:48)
[2018-07-29] MEDS: predniSONE 20 MG TABLET PO SCH (08:48)
[2018-07-29] MEDS: MECLIZINE HCL 12.5 MG TABLET PO SCH (08:48)
[2018-07-29] MEDS: PAROXETINE HCL 10 MG TABLET PO SCH (08:50)
[2018-07-29] MEDS: Z GUARD REMEDY 2 OZ OINT TP SCH (08:52)
[2018-07-29] MEDS: MEMANTINE HCL 5 MG TABLET PO SCH (08:57)
[2018-07-29] MEDS: LOSARTAN POTASSIUM 25 MG TABLET PO SCH (08:59)
[2018-07-29] MEDS: AMLODIPINE BESYLATE 5 MG TABLET PO SCH (08:59)
[2018-07-29 12:00] VITALS: BP 108/52
[2018-07-29] MEDS: INSULIN REGULAR, HUMAN 100 UNIT/ML 3 ML VIAL SQ PRN (12:08)
[2018-07-29 12:13] VITALS: BP 108/60
[2018-07-29] MEDS: ACETAMINOPHEN 650 MG/20.3 ML UDC NG PRN (12:51)
--- NOTE | 2018-07-29 13:00 | NUR ---
RN NOTES PATIENT SEEN AND EVALUATED BY DR. ANTONIA BRUNSON ORDERS TO DISCHARGE PATIENT TO [facility] NOTED AND CARRIED OUT CASE ROMEL WATTERS MADE AWARE.
[2018-07-29] MEDS ORDERED: ALBU1.25 NEB (13:15)
[2018-07-29] MEDS ORDERED: ENOX40DI SQ (13:15)
--- NOTE | 2018-07-29 16:40 | NUR ---
RN NOTES PATIENT DISCHARGED TO [facility]. DISCHARGE TEACHING PROVIDED VERBALIZED UNDERSTANDING. ALL BELONGINGS ACCOUNTED FOR, BELONGING LIST SIGNED. DISCHARGE PROTOCOL FOLLOWED. PATIENTS HOME MEDICATIONS RETURNED TO PATIENT. PATIENT DAUGHTER IN LAW AT BEDSIDE. MD AWARE OF ALL ABNORMAL LABS. PATIENT DISCHARGED TO [facility]. REPORT GIVEN TO VINCENT DUQUE.
== END 2018-07-29 16:40 | DRG 870 ==
LOC: ER 17:43 → ICU 19:41 → TELE 07-19 15:33 → ICU 07-19 16:13 → TELE1 07-24 12:33 → MEDSG1 07-25 12:15
PROVIDERS: ADMIT Registered Nurse; ATTEND Registered Nurse
PROC: 5A1955Z Respiratory Ventilation, Greater than 96 Consecutive Hours (ICD-10-PCS; principal; 2018-07-17)
PROC: 0BH18EZ Insertion of Endotracheal Airway into Trachea, Via Natural or Artificial Opening Endoscopic (ICD-10-PCS; 2018-07-17)
DX: A41.9 Sepsis, unspecified organism (principal); R65.21 Severe sepsis with septic shock; J96.01 Acute respiratory failure with hypoxia; G92 Toxic encephalopathy; J69.0 Pneumonitis due to inhalation of food and vomit; J98.59 Other diseases of mediastinum, not elsewhere classified; S22.32XA Fracture of one rib, left side, initial encounter for closed fracture; E87.2 Acidosis; N39.0 Urinary tract infection, site not specified; E72.20 Disorder of urea cycle metabolism, unspecified; E66.9 Obesity, unspecified; E83.42 Hypomagnesemia; I10 Essential (primary) hypertension; E11.65 Type 2 diabetes mellitus with hyperglycemia; J44.9 Chronic obstructive pulmonary disease, unspecified; R74.0 Nonspecific elevation of levels of transaminase and lactic acid dehydrogenase [LDH]; J45.909 Unspecified asthma, uncomplicated; S00.03XA Contusion of scalp, initial encounter; Y93.9 Activity, unspecified; Z68.31 Body mass index [BMI] 31.0-31.9, adult; Z91.81 History of falling; X58.XXXA Exposure to other specified factors, initial encounter; Y92.89 Other specified places as the place of occurrence of the external cause
CPT/HCPCS: 31720; 36415; 36600; 70450-TC; 71045-TC; 71260-TC; 80048-TC; 80061-TC; 80076-TC; 80305; 81000-TC; 82140-TC; 82803-TC; 82962-TC; 83605-TC; 83735-TC; 84100-TC; 84439-TC; 84443-TC; 84478-TC; 84484-TC; 85025-TC; 85730-TC; 87040-TC; 87070-TC; 87081-TC; 87086-TC; 87400; 87806; 92526; 92611-TC; 93307-TC; 94002-TC; 94003-TC; 94760-TC; 94799-TC; 97110-TC; 97116-TC; 97530-TC; 99082-TC; A4606; A9563; C9113; G0480; J0696; J1650; J1815; J1940; J1956; J2270; J2405; J2920; J2930; J3475; J3490; J7030; J7050; J7060; J8597; Q9967; Z7610